=== PATIENT | male | born 1975 | race Caucasian/White ===

== ENCOUNTER 2022-07-19 13:09 | Observation (INO) | payer SELFPAY ==
[2022-07-19] VITALS (21 sets, daily range): BP systolic 111–161; BP diastolic 76–125; PULSE 60–101; RESP 16–20; TEMP 36.2–36.8; O2SAT 97–100; BMI 31.6; BMI 27.1
--- NOTE | 2022-07-19 13:33 | CRLHL7_ITS ---
For Patients: As a result of the Century Cures Act, medical imaging exams and procedure reports are released immediately into your electronic medical record. You may view this report before your referring provider. If you have questions, please contact your health care provider. HISTORY: Upper abdominal/epigastric pain. TECHNIQUE: Intravenous contrast enhanced CT of the abdomen and pelvis. 99 mL Isovue-370 intravenous contrast administered. COMPARISON: 04/02/2012. FINDINGS: Mild fatty infiltration of the liver. No liver mass. No biliary ductal dilatation. Gallbladder does not appear excessively distended. Spleen size within normal limits. Enlargement of a 1.1 cm fat attenuation right adrenal gland lesion on image #43 of series 2 which may reflect a myelolipoma or lipoma. Left adrenal gland normal. There is peripancreatic edema and fluid compatible with pancreatitis. There is no pancreatic ductal dilatation. No pseudocyst. The peripancreatic vasculature remains patent. Symmetric nephrograms. Probable cyst at the anterior aspect of the superior pole the left kidney, enlarged as compared prior CT. Urinary bladder does not appear excessively distended. - No small bowel obstruction. No appendicitis. Colonic diverticulosis without acute diverticulitis. - No fluid collection or free air. - No abdominal aortic aneurysm. - Mild atelectasis within the lung bases. - Degenerative changes of the hips. There is ankylosis across the sacroiliac joints suggesting chronic sacroiliitis changes. Degenerative changes within the spine. No lumbar ankylosis. IMPRESSION: 1. Acute pancreatitis. No pancreatic necrosis or pseudocyst. 2. Mild fatty infiltration of the liver. 3. Colonic diverticulosis without diverticulitis. 4. Ankylosis across the sacroiliac joints suggesting chronic sacroiliitis changes. Dictated by Beau Remy MD @ 07/19/2022 3:43:37 PM Please note that all CT scans at this facility use dose modulation, iterative reconstruction, and/or weight-based dosing when appropriate to reduce radiation dose to as low as reasonably achievable. Dictated by: Beau Remy MD @ 07/19/2022 15:43:45 (Electronically Signed)
--- NOTE | 2022-07-19 13:34 | ED_ITS ---
HPI - Abdominal Pain General Chief Complaint: Abdominal Pain Stated Complaint: Abdominal pain Time Seen by Provider: 07/19/22 13:13 History of Present Illness HPI narrative: This 46-year-old male comes in with upper epigastric abdominal pain that began this morning. He states that he had similar pain about a 2 weeks ago. He reports some associated nausea and a couple vomiting episodes. He does not report any fever or diarrhea. He does have diabetes but is otherwise in good health. Related Data Allergies Allergy/AdvReac Type Severity Reaction Status Date / Time No Known Drug Allergies Allergy Verified 07/19/22 13:15 Review of Systems Status of ROS Reports: 10 or more systems reviewed and unremarkable except as noted in History and below Narrative Constitutional: No fevers, no weight gain or loss. Eyes: No discharge. No vision changes. HENT: No congestion, no sore throat, no ear pain. Cardiovascular: No chest pain, no palpitations. Respiratory: No shortness of breath, no wheezes, no cough. Gastrointestinal: Upper epigastric abdominal pain. Nausea with vomiting. No diarrhea. Genitourinary: No dysuria, no hematuria. Musculoskeletal: Normal range of motion. Skin: No rashes, no pruritis. Neurological: No dizziness, weakness, sensory change, speech change. Endo/Heme/Allergies: No bruising or bleeding. No polydipsia. Pysch: no suicidality, no anxiety, no insomnia. All other systems reviewed and are negative. PFSH PFSH Social History Smoking Status: Light tobacco smoker What tobacco products do you use: cigarettes Do you use any of these nicotine containing products: Vaping Products Second hand tobacco smoke exposure: No How often do you have a drink containing alcohol: monthly or less How many standard drinks containing alcohol do you have on a typical day: 1 or 2 How often do you have six or more drinks on one occasion: Never AUDIT-C Alcohol total score: 1 Non-prescribed substance use: denies use service: No Exam Narrative: Exam Narrative: Constitutional: Well-developed, well-nourished, no acute distress. HEENT: Normocephalic, atraumatic. Neck: Normal range of motion. Nontender. Supple. Heart: Regular. No murmurs. Normal rate. Intact distal pulses. Lungs: Clear to auscultation. No chest discomfort. No wheezes, rhonchi, or rales. Abdomen: Normal bowel sounds. Tenderness in the upper abdomen. No rebound tenderness. Genitalia: Deferred. Back: No midline tenderness. Normal range of motion. Extremities: Normal range of motion. No injury. Skin: Intact. No rash. Warm. No erythema or pallor. Neurologic: No altered sensation. No weakness. Alert and oriented. Psychiatric: No suicidality. No anxiety or depression. No insomnia. Nursing notes and vitals signs are reviewed. Const: Vital Signs, click to edit/add: Vital Signs - 24 hr 07/19/22 13:16 07/19/22 14:00 07/19/22 14:02 Temperature 97.2 F L Pulse Rate 73 64 Pulse Rate [Pulse Oximeter] 65 Respiratory Rate 20 Blood Pressure 144/103 H Blood Pressure [Ri ght Upper Arm] 161/125 H Pulse Oximetry 100 98 97 Oxygen Delivery Me thod Room Air Course Vital Signs Vital signs: Initial Vital Signs Temperature 97.2 F L 07/19/22 13:16 Temperature Source Temporal Artery Scan 07/19/22 13:16 Pulse Rate 65 07/19/22 13:16 Pulse Rhythm 07/19/22 13:16 Respiratory Rate 20 07/19/22 13:16 Blood Pressure 161/125 H 07/19/22 13:16 Blood Pressure Mean 137 07/19/22 13:16 Blood Pressure Position Supine 07/19/22 13:16 Pulse Oximetry 100 07/19/22 13:16 Oxygen Delivery Method 07/19/22 13:16 Vital Signs Temperature 97.2 F L 07/19/22 13:16 Pulse Rate 65 07/19/22 13:16 Respiratory Rate 20 07/19/22 13:16 Blood Pressure 161/125 H 07/19/22 13:16 Pulse Oximetry 100 07/19/22 13:16 Oxygen Delivery Method 07/19/22 13:16 Temperature 97.2 F L 07/19/22 13:16 Pulse Rate 64 07/19/22 14:02 Respiratory Rate 20 07/19/22 13:16 Blood Pressure 144/103 H 07/19/22 14:02 Pulse Oximetry 97 07/19/22 14:02 Oxygen Delivery Method 07/19/22 13:16 MDM - Abdominal Pain MDM Narrative Medical decision making narrative: This patient comes in with abdominal pain that started earlier this morning. An IV was established where he did receive Dilaudid 0.5 mg and Zofran [address] scan of the abdomen and pelvis is obtained and does show evidence of pancreatitis without any complication. His lipase level is also elevated. Glucose also returns elevated at 390. The patient states that he does not use alcohol. His gallbladder appears normal on CT imaging and other liver enzymes are not suspicious of an obstructive pattern. I did speak with the hospitalist chief information security officer, Dr. Hermosillo, who agrees to his admission. Lab Data Labs: Lab Results 07/19/22 07/19/22 Range/Units 13:50 13:50 WBC 10.89 (4.50-11.00) K/uL RBC 5.76 (4.30-5.90) m/uL Hgb 16.8 (13.5-17.5) gm/dL Hct 47.0 (37.0-53.0) % MCV 82 (80-100) fL MCH 29 (26-34) pg MCHC 36 (32-36) gm/dL RDW Coeff of Ruben 12.0 (11.5-15.5) % Plt Count 173 (140-440) K/uL Neut % (Auto) 74.9 H (42.0-72.0) % Lymph % (Auto) 18.2 L (20-44) % [place] % (Auto) 5.9 (0.0-11.0) % Eos % (Auto) 0.6 (0.0-7.0) % Baso % (Auto) 0.2 (0.0-3.0) % Neut # (Auto) 8.20 H (1.7-7.0) K/uL Lymph # (Auto) 2.00 (0.90-2.90) K/uL [place] # (Auto) 0.60 (0.00-0.90) K/UL Eos # (Auto) 0.06 (0.00-0.50) K/uL Baso # (Auto) 0.02 (0.00-0.30) K/uL Sodium 132 L (135-149) mmol/L Potassium 4.4 (3.6-5.1) mmol/L Chloride 97 (96-114) mmol/L Carbon Dioxide 21 (20-32) mmol/L BUN 13 (5-24) mg/dL Creatinine 0.7 (0.5-1.5) mg/dL Estimated Creat Clear 139.05 Estimated GFR 117 ml/min Glucose 390 H* (60-115) mg/dL Calcium 9.2 (8.4-10.6) mg/dL Total Bilirubin 1.4 (0.1-1.5) mg/dL Direct Bilirubin 0.5 (0.0-0.5) mg/dL AST 33 (12-35) U/L ALT 43 (4-50) U/L Alkaline Phosphatase 181 H (40-150) U/L Total Protein 8.8 H (6.0-8.3) g/dL Albumin 4.6 (3.3-5.0) g/dL Lipase 2707 H (23-300) U/L Imaging Data CT scan - abdomen: Radiologist's impression: 1. Acute pancreatitis. No pancreatic necrosis or pseudocyst. 2. Mild fatty infiltration of the liver. 3. Colonic diverticulosis without diverticulitis. 4. Ankylosis across the sacroiliac joints suggesting chronic sacroiliitis changes. ECG Data Attestation: I personally reviewed and interpreted this ECG as follows: Interpretation: Normal sinus rhythm. Rate is 60 beats per minute. There are no ST or T-wave abnormalities. Discharge Plan Discharge Clinical Impression: Acute pancreatitis Patient Disposition: Admitted As Inpatient Condition: Unchanged Follow Up/Referrals: Provider,Not a Local [Primary Care Provider] - Stand Alone Forms: [employer] Info Instructions
[2022-07-19] MEDS: ONDANSETRON 2 MG/ML inj 4 MG IVP (13:52)
[2022-07-19] MEDS: HYDROmorphone 0.5 mg/0.5 ml inj IVP (13:55)
[2022-07-19 13:57] LABS: Basophils Absolute Auto 0.02 K/uL (0.00-0.30); Basophils Percent Auto 0.2 % (0.0-3.0); Eosinophils Absolute Auto 0.06 K/uL (0.00-0.50); Eosinophils Percent Auto 0.6 % (0.0-7.0); Hemoglobin* 16.8 gm/dL (13.5-17.5); Immature Granulocytes Abs Auto 0.02 K/uL (0.00-0.30); Immature Granulocytes Pct Auto 0.2 %; Lymphocytes Percent Auto 18.2 % (20-44); Mean Corpuscular HGB Conc 36 gm/dL (32-36); Mean Corpuscular Hemoglobin 29 pg (26-34); Mean Corpuscular Volume 82 fL (80-100); Monocytes Percent Auto 5.9 % (0.0-11.0); Neutrophils Percent Auto 74.9 % (42.0-72.0); Platelet Count* 173 K/uL (140-440); Red Blood Count 5.76 m/uL (4.30-5.90); White Blood Count* 10.89 K/uL (4.50-11.00)
[2022-07-19 14:05] LABS: Slide Review Reflex No
[2022-07-19 14:37] LABS: Albumin* 4.6 g/dL (3.3-5.0); Chloride* 97 mmol/L (96-114); Potassium* 4.4 mmol/L (3.6-5.1); Sodium* 132 mmol/L (135-149)
[2022-07-19 14:40] LABS: Alanine Aminotransferase* 43 U/L (4-50); Alkaline Phosphatase* 181 U/L (40-150); Aspartate Amino Transferase* 33 U/L (12-35); Bilirubin Direct* 0.5 mg/dL (0.0-0.5); Bilirubin Total* 1.4 mg/dL (0.1-1.5); Blood Urea Nitrogen* 13 mg/dL (5-24); Calcium* 9.2 mg/dL (8.4-10.6); Carbon Dioxide* 21 mmol/L (20-32); Creatinine* 0.7 mg/dL (0.5-1.5); Est. Creatinine Clearance* 139.05; Estimated Glomerular Filt Rate 117 ml/min; Total Protein* 8.8 g/dL (6.0-8.3)
[2022-07-19 14:49] LABS: Glucose* 390 mg/dL (60-115); Lipase* 2707 U/L (23-300)
[2022-07-19 16:20] LABS: SARS PCR* Negative SARS-CoV-2 (Negative)
--- NOTE | 2022-07-19 16:36 | P.IMHP_ITS ---
Hospitalist- H&P: HPI History of Present Illness Date Seen: 07/19/22 Chief complaint: Abdominal pain Narrative: ADMISSION HISTORY AND PHYSICAL - HOSPITALIST Chief Complaint: Abdominal pain HPI: Abhinav is a gentleman who presents with abdominal pain that started this morning. He states that to a much lesser extent he has had similar pains over the last 2 weeks. He said however this morning it started and it quickly accelerated and caused him significant discomfort, radiating to his left shoulder and mid back. He felt nauseated and threw up. No fever. He drinks very little alcohol. He is an uncontrolled type 2 diabetic with hypertriglyceridemia. He is seen with public assistance at [facility]. He lives in a home here in [place]. 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 He is bilingual. No drug use. I've updated the PFSH, medications and allergies in the [place] tabs. INVESTIGATIONS: LABS/MICRO/ECG/IMAGING 144/103, pulse 64, respirations 22, afebrile, satting 96% room air Weight stated as 100 kg, BMI 31.6 CBC is unremarkable. Normal white count. Not anemic. Normal platelets. Sodium is 132, glucose 390. Sodium corrects to 139. Otherwise normal electrolytes, normal renal function. Glucose 390. A1c greater than 14 Triglycerides 2347 CRP 0.5 Normal magnesium No alcohol detected UDS pending Alk phos noted to be a mildly elevated as is total protein Lipase 2700 Negative SARS-CoV-2 EKG shows right bundle-branch block. Abdominal pelvic CT 1. Acute pancreatitis. No pancreatic necrosis or pseudocyst. 2. Mild fatty infiltration of the liver. 3. Colonic diverticulosis without diverticulitis. 4. Ankylosis across the sacroiliac joints suggesting chronic sacroiliitis changes. REVIEW OF SYSTEMS: 12-point ROS completed with patient and negative unless otherwise stated in HPI or below. PHYSICAL EXAM: CODE STATUS: FULL CODE CONSTITUTIONAL: NAD, making jokes and smiling. VITAL SIGNS: see record. HEENT: Normocephalic, atraumatic. PERRL, EOMI, conjunctivae pink, no scleral icterus. Ears and nose externally normal. Pharynx normal. NECK: No JVD. No carotid bruit, no thyromegaly, no adenopathy. CHEST: Clear to auscultation bilaterally HEART: S1 and S2 normal. No harsh murmurs. Edema ABDOMEN: soft. mildly tender across the upper quadrants. MUSCULOSKELETAL: No gross joint deformity or swelling. NEURO: Cranial nerves intact. Grossly intact. No asymmetric findings. SKIN: No rashes, petechiae, concerning changes PSYCHIATRIC: Euthymic. 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 Kyrgyz as 2nd language, [place] Islander speaking. Highest level of school completed/degree received: 2nd grade Smoking Status: Light tobacco smoker What tobacco products do you use: cigarettes Do you use any of these nicotine containing products: Vaping Products Second hand tobacco smoke exposure: No How often do you have a drink containing alcohol: monthly or less How many standard drinks containing alcohol do you have on a typical day: 1 or 2 How often do you have six or more drinks on one occasion: Never AUDIT-C Alcohol total score: 1 Non-prescribed substance use: denies use Caffeine: Yes service: No Meds Home Medications and Allergies Home Medications Medication Instructions Recorded Confirmed Type amlodipine 5 mg tablet 5 mg PO DAILY 07/19/22 07/19/22 History atorvastatin 10 mg tablet 10 mg PO DAILY 07/19/22 07/19/22 History glimepiride 2 mg tablet 2 mg PO DAILY 07/19/22 07/19/22 History hydrochlorothiazide 25 mg tablet 25 mg PO DAILY 07/19/22 07/19/22 History lisinopril 10 mg tablet 10 mg PO DAILY 07/19/22 07/19/22 History metformin 500 mg tablet 1,000 mg PO QAM 07/19/22 07/19/22 History Allergies Allergy/AdvReac Type Severity Reaction Status Date / Time No Known Drug Allergies Allergy Verified 07/19/22 13:15 Exam Const: Vital Signs, click to edit/add: Vital Signs - 24 hr 07/19/22 13:16 07/19/22 14:00 07/19/22 14:02 Temperature 97.2 F L Pulse Rate 73 64 Pulse Rate [Pulse Oximeter] 65 Respiratory Rate 20 Blood Pressure 144/103 H Blood Pressure [Ri ght Upper Arm] 161/125 H Pulse Oximetry 100 98 97 Oxygen Delivery Me thod Room Air Hospitalist - H&P: Result Labs Labs: Short CBC 07/19/22 Range/Units 13:50 WBC 10.89 (4.50-11.00) K/uL Hgb 16.8 (13.5-17.5) gm/dL Hct 47.0 (37.0-53.0) % Plt Count 173 (140-440) K/uL BMP 07/19/22 13:50 Sodium 132 L Potassium 4.4 Chloride 97 Carbon Dioxide 21 BUN 13 Creatinine 0.7 Glucose 390 H* Calcium 9.2 Liver Function 07/19/22 Range/Units 13:50 Total Bilirubin 1.4 (0.1-1.5) mg/dL Direct Bilirubin 0.5 (0.0-0.5) mg/dL AST 33 (12-35) U/L ALT 43 (4-50) U/L Alkaline Phosphatase 181 H (40-150) U/L Albumin 4.6 (3.3-5.0) g/dL ECG Attestation: I personally reviewed and interpreted this ECG as follows: (NORMAL AXIS, SINUS RHYTHM, RATE IN THE 60S, RIGHT BUNDLE BRANCH BLOCK, NO ST T WAVE ISCHEMIC CHANGES. NO PREVIOUS ECG AVAILABLE) Prior ECG tracings: not available for review Imaging CT scan - abdomen: Attestation: I have reviewed the pertinent imaging results. Assessment and Plan Assessment and plan (1) Acute pancreatitis: Problem comment: Supportive care with IV analgesics, antiemetics. I suspect this is related to his hyperglycemia, hypertriglyceridemia. Sliding scale insulin with frequent Accu-Cheks. No evidence of acidosis. Abdominal ultrasound in morning. I will have the pharmacy do a deeper dive into his last set of refills, however I am not convinced he is totally compliant with his medications. I did keep him on same dose of glimepiride and I increased his metformin from a total of 1500 mg daily to 2000 mg divided b.i.d.. This is in addition to the insulin which will likely be needed at discharge given his A1c. Status: Acute (2) Uncontrolled diabetes mellitus: Problem comment: A1c greater than 14. Reports being on 2 orals, I question his compliance. Will definitely need some Education post hospitalization follow through Status: Acute (3) Hypertriglyceridemia: Problem comment: Greater than 1999, increased his atorvastatin from 10 mg to 40 mg. Again I am not sure how compliant he was with the 10 mg Status: Acute (4) Adrenal nodule: Problem comment: Noted, can be followed up as an outpatient Status: Acute (5) Renal cyst: Problem comment: Noted, can be followed up as outpatient Status: Acute (6) Elevated alkaline phosphatase measurement: Problem comment: Trend and follow. Status: Acute (7) Right bundle branch block: Problem comment: Noted Status: Acute
[2022-07-19 16:48] LABS: Cholesterol* 254 mg/dL (90-199)
[2022-07-19 16:49] LABS: HDL Cholesterol* 36 mg/dL (>=40)
[2022-07-19] MEDS: HYDROmorphone 0.5 mg/0.5 ml inj 0.2 MG IVP (16:50)
[2022-07-19 16:52] LABS: C Reactive Protein* 0.5 mg/dL (0.5-1.0)
[2022-07-19 17:06] LABS: Ethanol* < 0.01 % (0.01-0.03)
[2022-07-19 17:07] LABS: Triglycerides* 2347 mg/dL (40-149)
[2022-07-19 17:23] LABS: Hemoglobin A1C* > 14.00 % (0-5.6)
--- NOTE | 2022-07-19 17:36 | CRLHL7_ITS ---
For Patients: As a result of the Cures Act, medical imaging exams and procedure reports are released immediately into your electronic medical record. You may view this report before your referring provider. If you have questions, please contact your health care provider. INDICATION: PANCREATITIS. COMPARED TO EARLIER CT. TECHNIQUE: Ultrasound abdomen limited. Sonographic images of the right upper quadrant were obtained using corral-scale and color Doppler images. COMPARISON: CT STUDY EARLIER TODAY ON 07/19/2022. FINDINGS: Liver: Heterogeneous, echogenic liver parenchyma, likely due to fatty infiltration. No masses. No intrahepatic biliary dilatation. Liver size upper range of normal, measuring 17.6 cm. Gallbladder: No stones or sludge. Normal wall thickness. No pericholecystic fluid. Common bile duct: 5 mm. Pancreas: Unremarkable. No peripancreatic fluid identified on this ultrasound. Right kidney: Length 10.9 cm. Normal echotexture and cortex. No masses, stones, or hydronephrosis. Vasculature: Pro abdominal aorta, IVC, and portal vein not evaluated. IMPRESSION: 1. No cholelithiasis or biliary dilatation with clinical history of pancreatitis. No peripancreatic fluid or pancreatic head mass identified. Please see earlier CT report. 2. Hepatic steatosis. Dictated by Misael Roberto MD @ 07/19/2022 7:35:18 PM Dictated by: Misael Roberto MD @ 07/19/2022 19:35:28 (Electronically Signed)
[2022-07-19 18:01] LABS: Magnesium* 1.7 mg/dL (1.5-2.6)
[2022-07-19] MEDS: 0.9 % SODIUM CHLORIDE 1000 ml 1,000 ML 125 ML IV (19:20)
[2022-07-19] MEDS: PANTOPRAZOLE SODIUM 40 MG INJ IVP (19:37)
[2022-07-19] MEDS: ATORVASTATIN 10 MG TABLET 40 MG PO (20:44)
[2022-07-19] MEDS: ENOXAPARIN 40 MG/0.4 ML INJ SUBCUT (20:45)
[2022-07-19] MEDS: KETOROLAC 30 MG/ML inj IVP (22:41)
--- NOTE | 2022-07-19 23:39 | PC.NURSE ---
Pt. up to floor at 1735 w/complaints of upper left abd pain. PRN Toradol administered w/relief. VSS. Pt. denies N/V/SOB. IV in left AC patent. NS running at 125 hr. Blood sugar 361, Levemir and Novolog sliding scale administered. Pt. on diabetic clear liquid diet. Pt. will be NPO at midnight for abdominal ultra sound in the AM. Pt. is ukrainian speaking but understands and speaks Yakut. Has requested a traffic superintendent for tomorrow when he speaks with the MD when discussing his condition in detail. Ambulates indep. in Room. and to BR. Bilateral SCD's on.
[2022-07-20] MEDS: 0.9 % SODIUM CHLORIDE 1000 ml 1,000 ML 125 ML IV ×3 (02:57→18:59)
[2022-07-20 03:00] VITALS: BP 96/68; PULSE 88; RESP 16; TEMP 36.4; O2SAT 94
--- NOTE | 2022-07-20 05:26 | PC.NURSE ---
Shift note: Pt is doing well. No abd. pain, N/V were reported. V/S stable. NPO status maintained for possible ultrasound today. Pt is independent in room.
[2022-07-20] MEDS: OMEPRAZOLE 20 MG CAPSULE DR 40 MG PO (06:27)
[2022-07-20 07:03] LABS: HCO3 VBG 29 mmol/L (21-28); PCO2 VBG 46 mmHG (40-50); PO2 VBG 25.7 mmHG (25-47); pH VBG 7.405 (7.32-7.43)
[2022-07-20 07:06] LABS: Hematocrit 43.2 % (37.0-53.0); Hemoglobin* 14.9 gm/dL (13.5-17.5); Mean Corpuscular HGB Conc 35 gm/dL (32-36); Mean Corpuscular Hemoglobin 29 pg (26-34); Mean Corpuscular Volume 83 fL (80-100); Platelet Count* 171 K/uL (140-440); Red Blood Count 5.23 m/uL (4.30-5.90); White Blood Count* 9.18 K/uL (4.50-11.00)
[2022-07-20 07:16] LABS: Slide Review Reflex No
[2022-07-20 07:31] LABS: Albumin* 3.6 g/dL (3.3-5.0); Chloride* 106 mmol/L (96-114)
[2022-07-20 07:32] LABS: Potassium* 4.3 mmol/L (3.6-5.1); Sodium* 137 mmol/L (135-149)
[2022-07-20 07:33] LABS: Creatinine* 0.8 mg/dL (0.5-1.5); Estimated Glomerular Filt Rate 112 ml/min
[2022-07-20 07:34] LABS: Alanine Aminotransferase* 31 U/L (4-50); Alkaline Phosphatase* 96 U/L (40-150); Aspartate Amino Transferase* 24 U/L (12-35); Blood Urea Nitrogen* 17 mg/dL (5-24); Carbon Dioxide* 27 mmol/L (20-32); Gamma Glutamyl Transpeptidase* 43 U/L (8-55); Glucose* 241 mg/dL (60-115); Lipase* 482 U/L (23-300); Total Protein* 6.9 g/dL (6.0-8.3); Uric Acid* 5.2 mg/dL (2.2-8.4)
[2022-07-20 07:35] LABS: Calcium* 8.7 mg/dL (8.4-10.6)
[2022-07-20 07:37] LABS: C Reactive Protein* 2.5 mg/dL (0.5-1.0)
[2022-07-20 07:46] LABS: Triglycerides* 741 mg/dL (40-149)
[2022-07-20 08:23] VITALS: BP 104/69; PULSE 92; RESP 18; TEMP 36.7; O2SAT 94
[2022-07-20] MEDS: METFORMIN 500 MG TABLET 1000 MG PO ×2 (09:20→17:35)
[2022-07-20] MEDS: lisinopriL 10 MG TABLET PO (09:21)
[2022-07-20] MEDS: AMLODIPINE 5 MG TABLET PO (09:21)
[2022-07-20] MEDS: GLIMEPIRIDE 1 MG TABLET 2 MG PO (09:21)
[2022-07-20 11:36] VITALS: BP 95/57; PULSE 86; RESP 18; TEMP 36.8; O2SAT 96
--- NOTE | 2022-07-20 14:02 | PC.NURSE ---
Pt. ambulating independently. Tolerating clear liquid diabetic diet. No nausea/vomiting. Blood sugars 240 and 190. Bowel sounds active. Passing flatus. No BM. Denies pain.
[2022-07-20 15:00] VITALS: BP 114/90; PULSE 82; RESP 18; TEMP 36.9; O2SAT 96
--- NOTE | 2022-07-20 16:55 | P.IMPN_ITS ---
Progress Note: A&P Assessment and plan (1) Acute pancreatitis: Problem details: Supportive care with IV analgesics, antiemetics. I suspect this is related to his hyperglycemia, hypertriglyceridemia. Sliding scale insulin with frequent Accu-Cheks. No evidence of acidosis. Abdominal ultrasound is negative for gallstones or cholecystitis. I will have the pharmacy do a deeper dive into his last set of refills, however I am not convinced he is totally compliant with his medications. I did keep him on same dose of glimepiride and I increased his metformin from a total of 1500 mg daily to 2000 mg divided b.i.d.. This is in addition to the insulin which will likely be needed at discharge given his A1c. Status: Acute Assessment and Plan: Advance diet as tolerated. (2) Uncontrolled diabetes mellitus: Problem details: A1c greater than 14. Reports being on 2 orals, I question his compliance. Will definitely need some Education post hospitalization follow through Status: Acute Assessment and Plan: Dietitian consultation for tomorrow. Increased dose of detemir insulin. (3) Hypertriglyceridemia: Problem details: Greater than 1999, increased his atorvastatin from 10 mg to 40 mg. Again I am not sure how compliant he was with the 10 mg Status: Acute (4) Adrenal nodule: Problem details: Noted, can be followed up as an outpatient Status: Acute (5) Renal cyst: Problem details: Noted, can be followed up as outpatient Status: Acute (6) Elevated alkaline phosphatase measurement: Problem details: Trend and follow. Status: Acute (7) Right bundle branch block: Problem details: Noted Status: Acute Plan Patient agreeable with above stated plans and recommendations. Time Spent With Patient Total time spent: 40 minutes Subjective Time Seen by Provider: 11:00 Date Seen: 07/20/22 Interval history: Hospital day 2. Abhinav is a 46-year-old gentleman who presents with abdominal pain that started on the morning of his presentation to the hospital.? He states that to a much lesser extent he has had similar pains over the last 2 weeks.? He said however this morning it started and it quickly accelerated and caused him significant discomfort, radiating to his left shoulder and mid back.? He felt nauseated and threw up.? No fever.? He drinks very little alcohol.? He is an uncontrolled type 2 diabetic with hypertriglyceridemia.? He is seen with public assistance at [facility].? He lives in a home here in [place].? 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 He is bilingual.? No drug use. He indicates he feels almost 90% improved. Abdominal discomfort and back discomfort much improved. Tolerating increased activities. Tolerating clear liquids. Denies nausea or vomiting. Exam Narrative: Exam Narrative: I speak with patient in Italian and also through a transportation maintenance operator. Appears comfortable and in no acute distress. Alert and oriented to self, place, time, situation. Friendly, articulate, cooperative. Mood and affect are congruent. Lungs are clear to auscultation. No CVA tenderness. Heart tones with regular rhythm. Abdomen with active bowel sounds, soft, nontender. Extremities without edema. Skin is warm, dry, intact. Independent transfer, station, and gait. No focal motor neurologic deficits. Const: Vital Signs, click to edit/add: Vital Signs - 24 hr 07/19/22 17:00 07/19/22 17:01 07/19/22 17:47 Temperature Pulse Rate 90 89 Pulse Rate [Left P ulse Oximeter] Respiratory Rate 20 Blood Pressure 146/103 H Blood Pressure [Ri ght Arm] Pulse Oximetry 98 99 99 Oxygen Delivery Me thod Room Air 07/19/22 17:58 07/19/22 18:16 07/19/22 19:00 Temperature 97.6 F 97.6 F 97.8 F Pulse Rate 90 Pulse Rate [Left P ulse Oximeter] 90 94 Respiratory Rate 16 16 16 Blood Pressure 121/96 H Blood Pressure [Ri ght Arm] 121/96 H 134/94 H Pulse Oximetry 97 97 97 Oxygen Delivery Me thod Room Air Room Air Room Air 07/19/22 23:00 07/20/22 03:00 07/20/22 08:23 Temperature 98.3 F 97.6 F 98.1 F Pulse Rate Pulse Rate [Left P ulse Oximeter] 101 H 88 92 Respiratory Rate 16 16 18 Blood Pressure Blood Pressure [Ri ght Arm] 111/76 96/68 104/69 Pulse Oximetry 97 94 94 Oxygen Delivery Me thod Room Air Room Air Room Air 07/20/22 11:36 07/20/22 15:00 Temperature 98.2 F 98.4 F Pulse Rate Pulse Rate [Left P ulse Oximeter] 86 82 Respiratory Rate 18 18 Blood Pressure Blood Pressure [Ri ght Arm] 95/57 L 114/90 H Pulse Oximetry 96 96 Oxygen Delivery Me thod Room Air Room Air Labs Labs: Laboratory Results - last 24 hr 07/19/22 07/19/22 07/19/22 13:50 13:50 13:50 WBC RBC Hgb Hct MCV MCH MCHC Plt Count VBG pH VBG pCO2 VBG pO2 VBG HCO3 Sodium Potassium Chloride Carbon Dioxide BUN Creatinine Estimated Creat Clear Estimated GFR Glucose Hemoglobin A1c > 14.00 H Uric Acid Calcium Magnesium 1.7 Total Bilirubin GGT AST ALT Alkaline Phosphatase C-Reactive Protein 0.5 Total Protein Albumin Triglycerides 2347 H Cholesterol 254 H LDL Cholesterol, Calc -251 HDL Cholesterol 36 L Lipase Ethyl Alcohol < 0.01 L 07/20/22 07/20/22 07/20/22 06:55 06:55 06:55 WBC 9.18 RBC 5.23 Hgb 14.9 Hct 43.2 MCV 83 MCH 29 MCHC 35 Plt Count 171 VBG pH 7.405 VBG pCO2 46 VBG pO2 25.7 VBG HCO3 29 H Sodium 137 Potassium 4.3 Chloride 106 Carbon Dioxide 27 BUN 17 Creatinine 0.8 Estimated Creat Clear 125.50 Estimated GFR 112 Glucose 241 H Hemoglobin A1c Uric Acid 5.2 Calcium 8.7 Magnesium Total Bilirubin 1.0 GGT 43 AST 24 ALT 31 Alkaline Phosphatase 96 C-Reactive Protein 2.5 H Total Protein 6.9 Albumin 3.6 Triglycerides 741 H Cholesterol LDL Cholesterol, Calc HDL Cholesterol Lipase 482 H Ethyl Alcohol
[2022-07-20 19:00] VITALS: BP 115/82; PULSE 93; RESP 18; TEMP 36.8; O2SAT 95
[2022-07-20] MEDS: ENOXAPARIN 40 MG/0.4 ML INJ SUBCUT (20:49)
[2022-07-20] MEDS: ATORVASTATIN 10 MG TABLET 40 MG PO (20:49)
[2022-07-20 23:00] VITALS: BP 117/79; PULSE 93; RESP 18; TEMP 36.7; O2SAT 93
[2022-07-21] MEDS: 0.9 % SODIUM CHLORIDE 1000 ml 1,000 ML 125 ML IV (02:20)
[2022-07-21 03:00] VITALS: BP 114/79; PULSE 93; RESP 18; TEMP 36.5; O2SAT 96
--- NOTE | 2022-07-21 05:47 | PC.NURSE ---
[id number] Pt tolerating soft foods, denies N/V, no pain. pt slept well during night. independent in room.
[2022-07-21] MEDS: OMEPRAZOLE 20 MG CAPSULE DR 40 MG PO (06:13)
[2022-07-21 06:39] LABS: Lipase* 178 U/L (23-300)
[2022-07-21 06:42] LABS: C Reactive Protein* 4.4 mg/dL (0.5-1.0)
[2022-07-21 07:00] VITALS: BP 120/97; PULSE 86; RESP 20; TEMP 36.7; O2SAT 97
[2022-07-21] MEDS: GLIMEPIRIDE 1 MG TABLET 2 MG PO (08:21)
[2022-07-21] MEDS: METFORMIN 500 MG TABLET 1000 MG PO (08:22)
--- NOTE | 2022-07-21 10:27 | NUTR.NU ---
RDN with MD consult related to diabetic teaching. Patient admitted for acute pancreatitis and uncontrolled diabetes. A1C on admit was found to be greater than 14%. RDN visited with patient whom agreed to diet education. His was on the phone during visit whom is only Japanese speaking, patient interpreted for his . Diabetic diet education provided. Discussed basics of carbohydrate counting including sources of carbohydrates and serving sizes. Discussed using the plate method for carbohydrate-controlled, balanced meals that include ? plate non-starchy vegetables, ? plate protein, and 3-4 servings of carbohydrates per meal (fruit, whole grains, legumes, milk, yogurt) and 1-2 per snack. Handouts provided to support discussion. RDN contact information provided and encouraged patient to call with questions. RDN encouraged patient to visit RDN as an outpatient in a clinic setting. RDN to follow up as needed.
[2022-07-21 12:09] VITALS: BP 121/96; PULSE 90; RESP 20; TEMP 36.7
--- NOTE | 2022-07-21 13:06 | PC.NURSE ---
End of Shift Note: Patient will be discharging to home later this afternoon. Waiting for the in-person cytology teacher to be available as I want to make sure that he understands his discharge instructions. Did also tell patient this and he is in agreeement with waiting. Will continue to monitor until discharge.
--- NOTE | 2022-07-21 14:54 | P.DS_ITS ---
DS: Providers Provider Time Seen by Provider: 11:00 Date Seen: 07/21/22 Date of admission: 07/19/22 17:26 Primary care physician: Not a Local Provider Admitting Clinician: Karin Hermosillo MD Consults: 07/19/22 17:36 Consult to Nutrition [CONS] Routine Comment: Reason for consult:: Diabetic Teaching 07/20/22 14:43 Consult to Nutrition [CONS] Routine Comment: Reason for consult:: Miscellaneous Comment: DMT2 poor control; hypertriglyceridemia; acute pancreatitis Attending Physician on discharge: Karin Hermosillo MD Date of Discharge: 07/21/22 DS: Diagnosis Discharge Diagnosis (1) Acute pancreatitis: Status: Acute Problem details: Supportive care with IV analgesics, antiemetics. I suspect this is related to his hyperglycemia, hypertriglyceridemia. Sliding scale insulin with frequent Accu-Cheks. No evidence of acidosis. Abdominal ultrasound is negative for gallstones or cholecystitis. I will have the pharmacy do a deeper dive into his last set of refills, however I am not convinced he is totally compliant with his medications. I did keep him on same dose of glimepiride and I increased his metformin from a total of 1500 mg daily to 2000 mg divided b.i.d.. This is in addition to the insulin which will likely be needed at discharge given his A1c. (2) Hypertriglyceridemia: Status: Acute Problem details: Greater than 1999, increased his atorvastatin from 10 mg to 40 mg. Again I am not sure how compliant he was with the 10 mg (3) Uncontrolled diabetes mellitus: Status: Acute Problem details: A1c greater than 14. Reports being on 2 orals, I question his compliance. Will definitely need some Education post hospitalization follow through (4) Elevated alkaline phosphatase measurement: Status: Acute Problem details: Trend and follow. (5) Hepatic steatosis: Status: Acute (6) Right bundle branch block: Status: Acute Problem details: Noted (7) Renal cyst: Status: Acute Problem details: Noted, can be followed up as outpatient (8) Adrenal nodule: Status: Acute Problem details: Recommend follow-up in outpatient setting DS: Summary Hospital Course Hospital Course: 46 year old man presents with abdominal pain that started on the morning of his presentation for evaluation.? He states that to a much lesser extent he has had similar pains over the prior 2 weeks.? Ont the morning of presentation, the pain quickly accelerated and caused him significant discomfort, radiating to his left shoulder and mid back.? He felt nauseated and threw up.? No fever.? He drinks very little alcohol.? He is an uncontrolled type 2 diabetic with h ypertriglyceridemia.? He is seen with public assistance at [facility].? He lives in a home here in [place].? 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 He is bilingual.? No drug use. CT scan demonstrated acute pancreatitis. Noted to have hepatic steatosis. No gallbladder or gallstone concerns. Ultrasound similarly demonstrated the hepatic steatosis with normal gallbladder and no gallstones. Triglyceride level on presentation was elevated at 2347. Patient admitted for acute hospital stay. Treated with IV and p.o. analgesics and antiemetics. Treated with IV fluids. Diet gradually increased to low residue low-fat, which he tolerated. Was able to meet his metabolic needs and hydration needs. Hemoglobin A1c was greater than 14. Met with dietitian. Underwent education regarding diabetes care and use of insulin and administration of the same. We instituted short-acting insulin use with meals, aspart insulin. We also instituted long-acting insulin, detemir insulin. Blood sugars gradually normalized from near 500 on presentation down to the mid 100s at time of discharge. Explained to the patient that he will need ongoing follow-up with his primary care physician in an effort to continue to address his diabetes care. Status at Discharge Functional status at discharge: independent ambulation Overall status at discharge: patient is back to baseline Time Spent with Patient Time attestation: Total time spent providing and/or coordinating discharge services: Time spent: Greater than 30 minutes Exam Narrative: Exam Narrative: I speak with patient in Upper Sorbian and also through a seismic interpreter. Appears comfortable and in no acute distress.? Alert and oriented to self, place, time, situation.? Friendly, articulate, cooperative.? Mood and affect are congruent.? Lungs are clear to auscultation.? No CVA tenderness. Heart tones with regular rhythm.? Abdomen with active bowel sounds, soft, nontender. Extremities without edema. Skin is warm, dry, intact. Independent transfer, station, and gait.? No focal motor neurologic deficits. Const: Vital Signs, click to edit/add: Vital Signs - 24 hr 07/20/22 15:00 07/20/22 19:00 07/20/22 23:00 Temperature 98.4 F 98.2 F 98.0 F Pulse Rate Pulse Rate [Left P ulse Oximeter] 82 93 93 Respiratory Rate 18 18 18 Blood Pressure Blood Pressure [Le ft Arm] 115/82 117/79 Blood Pressure [Ri ght Arm] 114/90 H Pulse Oximetry 96 95 93 Oxygen Delivery Me thod Room Air Room Air Room Air 07/21/22 03:00 07/21/22 07:00 07/21/22 07:00 Temperature 97.7 F 98.1 F Pulse Rate Pulse Rate [Left P ulse Oximeter] 93 86 86 Respiratory Rate 18 20 20 Blood Pressure Blood Pressure [Le ft Arm] 114/79 120/97 H Blood Pressure [Ri ght Arm] 120/97 H Pulse Oximetry 96 97 Oxygen Delivery Me thod Room Air Room Air 07/21/22 12:09 Temperature 98.1 F Pulse Rate 90 Pulse Rate [Left P ulse Oximeter] Respiratory Rate 20 Blood Pressure 121/96 H Blood Pressure [Le ft Arm] Blood Pressure [Ri ght Arm] Pulse Oximetry Oxygen Delivery Me thod Documenting provider has reviewed patient's vital signs: yes DS: Data Data Completed and Pending Labs on day of discharge: Labs from last 24 hours 07/21/22 06:09 C-Reactive Protein 4.4 H Lipase [address] scan - abdomen: Attestation: I have reviewed the pertinent imaging results. Radiologist's impression: IMPRESSION: 1. Acute pancreatitis. No pancreatic necrosis or pseudocyst. 2. Mild fatty infiltration of the liver. 3. Colonic diverticulosis without diverticulitis. 4. Ankylosis across the sacroiliac joints suggesting chronic sacroiliitis changes. US - abdomen: Radiologist's impression: IMPRESSION: 1. No cholelithiasis or biliary dilatation with clinical history of pancreatitis. No peripancreatic fluid or pancreatic head mass identified. Please see earlier CT report. 2. Hepatic steatosis. Discharge Plan Discharge Disposition: Home, Self-Care Date of Admission: 07/19/22 17:26 Attending Provider on Discharge: Andrew Segal Primary Care Provider: Provider,Not a Local Condition: Improved Anticipated Discharge Date/Time: 07/21/22 13:00 Discharge Medications: New metformin 500 mg Tablet 1,000 mg PO BIDWM 30 Days Qty: 60 2RF insulin aspart U-100 [Novolog Flexpen U-100 Insulin] 100 unit/mL (3 mL) Insulin Pen 10 unit subcut TIDWM 30 Days Qty: 3 0RF Levemir FlexTouch U-100 Insuln 100 unit/mL (3 mL) insulin pen 40 unit subcut QHS Qty: 15 2RF atorvastatin 40 mg tablet 40 mg PO DAILY Qty: 30 2RF Continued amlodipine 5 mg tablet 5 mg PO DAILY Label Comments: TAKE ONE TABLET BY MOUTH EVERY DAY. lisinopril 10 mg tablet 10 mg PO DAILY Label Comments: TAKE ONE TABLET BY MOUTH ONCE DAILY hydrochlorothiazide 25 mg tablet 25 mg PO DAILY Label Comments: TAKE ONE TABLET BY MOUTH EVERY MORNING TO CONTROL HYPERTENSION glimepiride 2 mg tablet 2 mg PO DAILY Label Comments: TAKE ONE TABLET BY MOUTH TWICE A DAY Discontinued atorvastatin 10 mg tablet 10 mg PO DAILY Label Comments: TAKE ONE TABLET BY MOUTH EVERY DAY. metformin 500 mg tablet 1,000 mg PO QAM Label Comments: TAKE TWO TABLETS BY MOUTH IN THE MORNING AND ONE TABLET IN THE EVENING Discharge Orders: Discharge Order (Routine); Ordered 07/21/22 Ordered By: Andrew Segal Patient Education: Metformin (By mouth), Atorvastatin (By mouth), Insulin Aspart Protamine/Insulin Aspart (By injection), Insulin Detemir (By injection) (Levemir, Levemir FlexPen, Levemir... Additional Instructions: 1. Follow-up with primary care physician in 1-2 weeks; 2. Balanced life efforts: diabetic diet, medication adherence, follow-up with physician, adequate sleep, sufficient daily exercise, psychosociospiritual and financial wellbeing, avoid use and consumption of tobacco, alcohol and street drugs; 3. Strive to gradually achieve and maintain weight of 85 kg. Activity Level: No Restrictions Discharge Diet: Diabetic Follow Up Appointments: Provider,Not a Local [Primary Care Provider] - (Follow up as needed) Forms: [employer] Info Instructions
--- NOTE | 2022-07-21 16:41 | W.PM.CROSSCO ---
Subjective Subjective Interval history: Called by [facility] after patient discharged, they did not have coverage for patient's long-acting and short-acting insulin through [facility]. The did have access to Novolin 70/30. Based on patient's A1c and current insulin dosages, his discharge prescription was changed from long-acting and mealtime insulin to 70/30, 20 units in the morning and 15 units before supper.
== END 2022-07-21 14:38 | disposition home or self-care (01) ==
LOC: ED 16:17 → MEDSURG 17:26
PROVIDERS: Internal Medicine; Admitting Provider Family Medicine; Emergency Provider Emergency Medicine Emergency Medical Services; Visit Provider Family Medicine
DX: K85.90 Acute pancreatitis without necrosis or infection, unspecified (principal); K76.0 Fatty (change of) liver, not elsewhere classified; E27.8 Other specified disorders of adrenal gland; N28.1 Cyst of kidney, acquired; R74.8 Abnormal levels of other serum enzymes; E78.1 Pure hyperglyceridemia; I45.10 Unspecified right bundle-branch block; E11.65 Type 2 diabetes mellitus with hyperglycemia; I10 Essential (primary) hypertension; R10.13 Epigastric pain; R11.2 Nausea with vomiting, unspecified; Z72.0 Tobacco use; Z87.19 Personal history of other diseases of the digestive system; Z79.84 Long term (current) use of oral hypoglycemic drugs; Z91.14 Patient's other noncompliance with medication regimen
CPT/HCPCS: 36415; 74177; 76705; 80048; 80053; 80061; 80076; 80306; 82077; 82803; 82962; 82977; 83036; 83690; 83735; 84478; 84550; 85025; 85027; 86140; 87635; 96361; 96372; 96374; 96375; 96376; 99285; A9270; C9113; G0378; J1170; J1650; J1885; J2405; J7030; Q9967

== ENCOUNTER 2023-09-29 09:39 | Emergency (ER) | payer OTHER, SELFPAY ==
[2023-09-29] VITALS (17 sets, daily range): BP systolic 130–151; BP diastolic 94; PULSE 87–106; RESP 20; TEMP 37.5; O2SAT 93–98
[2023-09-29] MEDS: MORPHINE 4 MG/ML INJ IVP (10:39)
[2023-09-29] MEDS: ONDANSETRON 2 MG/ML inj 4 MG IVP (10:41)
--- NOTE | 2023-09-29 10:42 | ED.GENADULT ---
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 States he has not had pain like this before in his back back pain and denies any injuries. Has taken some Tylenol ibuprofen for home with minimal improvement in his symptoms. States the pain wraps around to his epigastric region and states this epigastric pain feels similar to his previous pancreatitis. Has had decreased appetite secondary to the pain with associated nausea. Has not had any vomiting. Denies any fevers or chills. Describes it as a sharp pain in his epigastric region and a dull pain in his back. Says the back pain starts in his neck and seems call or down his back and in his low back he said it radiates to paraspinal region. Denies fevers, chills, diarrhea, constipation, lightheadedness, dizziness, headache, vision changes. Related Data Home Medications Medication Instructions Recorded Confirmed amlodipine 5 mg tablet 5 mg PO DAILY 07/19/22 07/19/22 glimepiride 2 mg tablet 2 mg PO DAILY 07/19/22 07/19/22 hydrochlorothiazide 25 mg tablet 25 mg PO DAILY 07/19/22 07/19/22 lisinopril 10 mg tablet 10 mg PO DAILY 07/19/22 07/19/22 Previous Rx's Medication Instructions Recorded atorvastatin 40 mg tablet 40 mg PO DAILY #30 tabs 07/21/22 insulin NPH-regular 70-30 U-100 15 unit (0.15 mL) subcut BID #15 mL 07/21/22 insulin 100 unit/mL subcutaneous pen (Novolin 70-30 FlexPen U-100 Insulin) metformin 500 mg tablet 1,000 mg (2 x 500 mg) PO BIDWM 30 07/21/22 days #60 tabs ondansetron 4 mg disintegrating 4 mg PO Q6H #20 tabs 09/29/23 tablet oxycodone 5 mg tablet 5 mg PO Q6H PRN pain #12 tabs 09/29/23 Allergies Allergy/AdvReac Type Severity Reaction Status Date / Time No Known Drug Allergies Allergy Verified 09/29/23 12:33 Review of Systems Status of ROS: Reports: 10 or more systems reviewed and unremarkable except as noted in History and below [facility] Medical History (Updated 09/29/23 @ 15:12 by Noah Quintana DO) Sacroiliitis ?M46.1 - Sacroiliitis, not elsewhere classified (ICD-10) Diverticulosis ?K57.90 - Diverticulosis of intestine, part unspecified, without perforation or abscess without bleeding (ICD-10) History of diverticulitis ?Z87.19 - Personal history of other diseases of the digestive system (ICD-10) Right bundle branch block ?I45.10 - Unspecified right bundle-branch block (ICD-10) Renal cyst ?N28.1 - Cyst of kidney, acquired (ICD-10) Hypertriglyceridemia ?E78.1 - Pure hyperglyceridemia (ICD-10) Uncontrolled diabetes mellitus Social History (Updated 07/19/22 @ 16:36 by Karin Hermosillo MD) Narrative: , 4 kids, works for a [employer]. Ukrainian as 2nd language, [place] speaking. Highest level of school completed/degree received: 2nd grade Smoking Status: Light tobacco smoker What tobacco products do you use: cigarettes Do you use any of these nicotine containing products: Vaping Products Second hand tobacco smoke exposure: No How often do you have a drink containing alcohol: monthly or less How many standard drinks containing alcohol do you have on a typical day: 1 or 2 How often do you have six or more drinks on one occasion: Never AUDIT-C Alcohol total score: 1 Non-prescribed substance use: denies use Caffeine: Yes service: No Exam Narrative: Exam Narrative: Const: Well-nourished, Well-developed, in mild distress Eyes: PERRL, no conjunctival injection, and symmetrical lids HENT: Atraumatic external nose and ears. Moist mucous membranes. Neck: Symmetric, trachea midline, No thyromegaly. CVS: RRR, No murmurs or gallops. Peripheral pulses 2+ and equal in all extremities RESP: Unlabored respiratory effort. Clear to auscultation bilaterally. GI: Epigastric tenderness Nondistended, No rebound or guarding. MSK:Extremities w/o deformity, Normal Active ROM, tenderness noted throughout back both midline and paraspinal Skin: Warm, Dry. No rashes or lesions. Neuro: Normal Muscle tone, No focal neurological deficits. Psych: Awake, Alert, & Oriented x3. Appropriate mood and affect. Const: Vital Signs, click to edit/add: Vital Signs - 24 hr 09/29/23 09:56 09/29/23 11:02 09/29/23 11:12 Temperature 99.5 F Pulse Rate 101 H Pulse Rate [Pulse Oximeter] 103 H 93 Respiratory Rate 20 Blood Pressure Blood Pressure [Ri ght Upper Arm] 151/94 H Pulse Oximetry 95 96 Oxygen Delivery Me thod Room Air 09/29/23 11:15 09/29/23 11:30 09/29/23 11:45 Temperature Pulse Rate 96 94 97 Pulse Rate [Pulse Oximeter] Respiratory Rate Blood Pressure Blood Pressure [Ri ght Upper Arm] Pulse Oximetry 93 93 97 Oxygen Delivery Me thod 09/29/23 12:00 09/29/23 12:42 09/29/23 12:45 Temperature Pulse Rate 97 106 H 104 H Pulse Rate [Pulse Oximeter] Respiratory Rate Blood Pressure Blood Pressure [Ri ght Upper Arm] Pulse Oximetry 98 95 95 Oxygen Delivery Me thod 09/29/23 12:49 09/29/23 13:00 09/29/23 13:15 Temperature Pulse Rate 103 H 95 100 Pulse Rate [Pulse Oximeter] Respiratory Rate Blood Pressure 130/94 H Blood Pressure [Ri ght Upper Arm] Pulse Oximetry 95 94 97 Oxygen Delivery Me thod 09/29/23 13:30 09/29/23 13:45 09/29/23 14:00 Temperature Pulse Rate 93 97 87 Pulse Rate [Pulse Oximeter] Respiratory Rate Blood Pressure Blood Pressure [Ri ght Upper Arm] Pulse Oximetry 95 96 95 Oxygen Delivery Me thod 09/29/23 14:15 09/29/23 14:30 Temperature Pulse Rate 93 103 H Pulse Rate [Pulse Oximeter] Respiratory Rate Blood Pressure Blood Pressure [Ri ght Upper Arm] Pulse Oximetry 96 93 Oxygen Delivery Me thod Course Vital Signs Vital signs: Initial Vital Signs Temperature 99.5 F 09/29/23 09:56 Temperature Source Temporal Artery Scan 09/29/23 09:56 Pulse Rate 103 H 09/29/23 09:56 Pulse Rhythm Regular 09/29/23 09:56 Respiratory Rate 20 09/29/23 09:56 Blood Pressure 151/94 H 09/29/23 09:56 Blood Pressure Mean 113 H 09/29/23 09:56 Blood Pressure Position Sitting 09/29/23 09:56 Pulse Oximetry 95 09/29/23 09:56 Oxygen Delivery Method Room Air 09/29/23 09:56 Vital Signs Temperature 99.5 F 09/29/23 09:56 Pulse Rate 103 H 09/29/23 09:56 Respiratory Rate 20 09/29/23 09:56 Blood Pressure 151/94 H 09/29/23 09:56 Pulse Oximetry 95 09/29/23 09:56 Oxygen Delivery Method Room Air 09/29/23 09:56 Temperature 99.5 F 09/29/23 09:56 Pulse Rate 103 H 09/29/23 14:30 Respiratory Rate 20 09/29/23 09:56 Blood Pressure 130/94 H 09/29/23 12:49 Pulse Oximetry 93 09/29/23 14:30 Oxygen Delivery Method Room Air 09/29/23 09:56 Medications Administered Medications: Discontinued Medications Generic Name Dose Route Start Last Admin Trade Name Freq PRN Reason Stop Dose Admin Lactated Ringer's 1,000 mls @ 1,000 mls/hr 09/29/23 12:37 09/29/23 13:57 Lactated Ringers 1000 Ml IV 09/29/23 13:36 Infused .Q1H ONE Infusion Ketorolac Tromethamine 15 mg 09/29/23 11:55 09/29/23 12:12 Ketorolac 15 Mg/Ml Inj IVP 09/29/23 11:56 15 mg ONCE ONE Administration Lidocaine HCl 7.5 ml 09/29/23 11:55 09/29/23 12:12 Lidocaine Hcl 4 % Top Soln 50 Ml Bottle PO 09/29/23 11:56 7.5 ml ONCE ONE Administration Lidocaine/Aluminum/Magnesium/Simeth 15 ml 09/29/23 11:55 09/29/23 12:12 Mag Hydrox/Aluminum Hyd/Simeth 30 Ml Oral.Susp PO 09/29/23 11:56 15 ml ONCE ONE Administration Morphine Sulfate 4 mg 09/29/23 10:24 09/29/23 10:39 Morphine 4 Mg/Ml Inj IVP 09/29/23 10:25 4 mg ONCE ONE Administration Ondansetron HCl 4 mg 09/29/23 10:27 09/29/23 10:41 Ondansetron 2 Mg/Ml Inj IVP 09/29/23 10:28 4 mg ONCE ONE Administration Medical Decision Making MDM Narrative Medical decision making narrative: Patient is a 48-year-old male presenting to emergency department for epigastric and back pain. He states the symptoms feel similar to his previous pancreatitis. He has been limited in what he can eat and drink over the past day because of the symptoms. At this time pancreatitis on my differential. Cause of a viral syndrome, muscle strain. Or CBC, CMP, lipase, urinalysis, CBC, coags/flu/RSV test. Morphine and Toradol given for pain and Zofran for nausea. Wound x-ray of his thoracic spine CT scan his abdomen and pelvis. The patient continued to have epigastric pain after the pain medications and a GI cocktail was given. After that his epigastric pain fully resolved he states. Is still having back pain but seems better is only really there when he moves. X-ray of the thoracic spine reviewed by myself and the radiologist shows no concerning findings. CT scan returned showing E concern for pancreatitis. Despite only a slightly elevated lipase at 317 with between his pain and the CT findings this does seem to be a mild case of acute pancreatitis. He does have an elevated white count of 12.19. Between his elevated heart rate and leukocytosis he does meet SIRS criteria and a lactate will be ordered. He has been given a L fluid already. Lactate was within normal limits. I believe this leukocytosis is more likely a stress reaction rather than infection at this time. Urinalysis shows no concerning findings. He is otherwise doing well at this time and symptoms are much improved. Due to his acute pancreatitis I spoke to him about admission versus discharge. This time he is hesitant for admission due to not having insurance and he feels comfortable discharging home with follow-up with [facility]. Patient well be discharged home with oxycodone for pain and Zofran for nausea. Was informed to stay on a clear liquid diet. Was told to come back for worsening symptoms. Lab Data Labs: Lab Results 09/29/23 09/29/23 09/29/23 Range/Units 10:35 13:31 13:50 WBC 12.19 H (4.50-11.00) K/uL RBC 5.29 (4.30-5.90) m/uL Hgb 15.9 (13.5-17.5) gm/dL Hct 43.4 (37.0-53.0) % MCV 82 (80-100) fL MCH 30 (26-34) pg MCHC 37 H (32-36) gm/dL RDW Coeff of Ruben 12.5 (11.5-15.5) % Plt Count 169 (140-440) K/uL Neut % (Auto) 76.9 H (42.0-72.0) % Lymph % (Auto) 14.2 L (20-44) % Wolfe % (Auto) 7.4 (0.0-11.0) % Eos % (Auto) 1.1 (0.0-7.0) % Baso % (Auto) 0.2 (0.0-3.0) % Neut # (Auto) 9.40 H (1.7-7.0) K/uL Lymph # (Auto) 1.70 (0.90-2.90) K/uL Wolfe # (Auto) 0.90 (0.00-0.90) K/UL Eos # (Auto) 0.10 (0.00-0.50) K/uL Baso # (Auto) 0.00 (0.00-0.30) K/uL Abs Immat Gran (auto) 0.00 (0.00-0.30) K/uL Imm/Tot Granulo (auto) 0.2 % Sodium 134 L (135-149) mmol/L Potassium 4.0 (3.6-5.1) mmol/L Chloride 100 (96-114) mmol/L Carbon Dioxide 19 L (20-32) mmol/L Anion Gap 15 (7-15) mEq/L BUN 13 (5-24) mg/dL Creatinine 0.5 (0.5-1.5) mg/dL Estimated Creat Clear 196.62 Estimated GFR 127 ml/min Glucose 254 H (60-115) mg/dL Lactate (0.5-1.9) mmol/L Calcium 8.7 (8.4-10.6) mg/dL Total Bilirubin 1.2 (0.1-1.5) mg/dL AST 33 (12-35) U/L ALT 47 (4-50) U/L Alkaline Phosphatase 153 H (40-150) U/L Total Protein 8.8 H (6.0-8.3) g/dL Albumin 4.1 (3.3-5.0) g/dL Lipase 317 H (23-300) U/L Urine Color Yellow (Yellow) Urine Appearance Clear (Clear) Urine pH 6.0 (5.0-8.5) Ur Specific [place] 1.010 (1.000-1.030) Urine Protein Negative (Negative) Urine Glucose (UA) 2+ A (Negative) Urine Ketones 2+ A (Negative) Urine Blood Negative (Negative) Urine Nitrite Negative (Negative) Urine Bilirubin Negative (Negative) Urine Urobilinogen 0.2 (0.2-1.0) Ur Leukocyte Esterase Negative (Negative) Urine RBC 0-2 (0-2) Urine WBC 0-2 (0-5) Ur Squamous Epith Cells Few (None-Few) Urine Bacteria None (None) SARS-CoV-2 (PCR) Negative SARS-CoV-2 (Negative) Influenza Type A (PCR) Negative PCR FLU A (Negative) Influenza Type B (PCR) Negative PCR FLU B (Negative) RSV (PCR) Negative PCR RSV (Negative) Lab Acknowledgement Test Added POC Troponin I 0.00 L (0.01-0.04) ng/ml 09/29/23 Range/Units 14:32 WBC (4.50-11.00) K/uL RBC (4.30-5.90) m/uL Hgb (13.5-17.5) gm/dL Hct (37.0-53.0) % MCV (80-100) fL MCH (26-34) pg MCHC (32-36) gm/dL RDW Coeff of Ruben (11.5-15.5) % Plt Count (140-440) K/uL Neut % (Auto) (42.0-72.0) % Lymph % (Auto) (20-44) % Wolfe % (Auto) (0.0-11.0) % Eos % (Auto) (0.0-7.0) % Baso % (Auto) (0.0-3.0) % Neut # (Auto) (1.7-7.0) K/uL Lymph # (Auto) (0.90-2.90) K/uL Wolfe # (Auto) (0.00-0.90) K/UL Eos # (Auto) (0.00-0.50) K/uL Baso # (Auto) (0.00-0.30) K/uL Abs Immat Gran (auto) (0.00-0.30) K/uL Imm/Tot Granulo (auto) % Sodium (135-149) mmol/L Potassium (3.6-5.1) mmol/L Chloride (96-114) mmol/L Carbon Dioxide (20-32) mmol/L Anion Gap (7-15) mEq/L BUN (5-24) mg/dL Creatinine (0.5-1.5) mg/dL Estimated Creat Clear Estimated GFR ml/min Glucose (60-115) mg/dL Lactate 0.9 (0.5-1.9) mmol/L Calcium (8.4-10.6) mg/dL Total Bilirubin (0.1-1.5) mg/dL AST (12-35) U/L ALT (4-50) U/L Alkaline Phosphatase (40-150) U/L Total Protein (6.0-8.3) g/dL Albumin (3.3-5.0) g/dL Lipase (23-300) U/L Urine Color (Yellow) Urine Appearance (Clear) Urine pH (5.0-8.5) Ur Specific [place] (1.000-1.030) Urine Protein (Negative) Urine Glucose (UA) (Negative) Urine Ketones (Negative) Urine Blood (Negative) Urine Nitrite (Negative) Urine Bilirubin (Negative) Urine Urobilinogen (0.2-1.0) Ur Leukocyte Esterase (Negative) Urine RBC (0-2) Urine WBC (0-5) Ur Squamous Epith Cells (None-Few) Urine Bacteria (None) SARS-CoV-2 (PCR) (Negative) Influenza Type A (PCR) (Negative) Influenza Type B (PCR) (Negative) RSV (PCR) (Negative) Lab Acknowledgement POC Troponin I (0.01-0.04) ng/ml Imaging Data Thoracic spine x-ray: Radiologist's impression: Moderate degenerative changes of the thoracic spine without acute osseous abnormality. Dictated by Андрей Fonseca MD @ 09/29/2023 12:57:[address] scan abdomen pelvis: Radiologist's impression: 1. Moderate fat stranding is seen surrounding the pancreatic head with associated edema; findings are favored to represent acute pancreatitis. 2. Mild wall thickening of the proximal duodenum is favored to be reactive to adjacent pancreatic inflammation. 3. Moderate hepatic steatosis. Please note that all CT scans at this facility use dose modulation, iterative reconstruction, and/or weight-based dosing when appropriate to reduce radiation dose to as low as reasonably achievable. Dictated by Curly Adams MD @ 09/29/2023 12:55:47 PM ECG Data Attestation: I personally reviewed and interpreted this ECG as follows: Prior ECG tracings: available for review (07/19/2020 to) Interpretation: Normal sinus rhythm with a rate of 85 beats per minute, normal intervals, normal axis, no ST or T-wave abnormalities Discharge Plan Discharge Clinical Impression: Acute pancreatitis Qualifiers: Pancreatitis type: unspecified pancreatitis type Acute pancreatitis complication: no infection or necrosis Qualified Code(s): K85.90 - Acute pancreatitis without necrosis or infection, unspecified Patient Disposition: Home, Self-Care Condition: Improved Instructions: Pancreatitis (ED), Clear Liquid Diet (ED) Additional Instructions: Take the medication as prescribed. I recommend you take the oxycodone at a scheduled interval to stay ahead of the pain. Use Zofran as needed for nausea. Follow-up with [facility]. Return to emergency department for new or worsening symptoms. Eat a clear liquid diet. Prescriptions: New oxycodone 5 mg tablet 5 mg PO Q6H PRN (Reason: pain) Qty: 12 0RF ondansetron 4 mg tablet,disintegrating 4 mg PO Q6H Qty: 20 0RF No Action amlodipine 5 mg tablet 5 mg PO DAILY Patient Comments: TAKE ONE TABLET BY MOUTH EVERY DAY. lisinopril 10 mg tablet 10 mg PO DAILY Patient Comments: TAKE ONE TABLET BY MOUTH ONCE DAILY hydrochlorothiazide 25 mg tablet 25 mg PO DAILY Patient Comments: TAKE ONE TABLET BY MOUTH EVERY MORNING TO CONTROL HYPERTENSION glimepiride 2 mg tablet 2 mg PO DAILY Patient Comments: TAKE ONE TABLET BY MOUTH TWICE A DAY metformin 500 mg Tablet 1,000 mg PO BIDWM 30 Days Qty: 60 2RF atorvastatin 40 mg tablet 40 mg PO DAILY Qty: 30 2RF Novolin 70-30 FlexPen U-100 100 unit/mL (70-30) insulin pen 15 unit subcut BID Qty: 15 3RF Rx Instructions: 25U Qam, 15U before supper (instructions in [place] please). Please disregard previous Rx for insulin Follow Up/Referrals: Provider,Not a Local [Referring] - Stand Alone Forms: [facility] Info Instructions
[2023-09-29 10:56] LABS: Basophils Percent Auto 0.2 % (0.0-3.0); Eosinophils Percent Auto 1.1 % (0.0-7.0); Hematocrit 43.4 % (37.0-53.0); Hemoglobin* 15.9 gm/dL (13.5-17.5); Immature Granulocytes Pct Auto 0.2 %; Lymphocytes Percent Auto 14.2 % (20-44); Mean Corpuscular HGB Conc 37 gm/dL (32-36); Mean Corpuscular Hemoglobin 30 pg (26-34); Mean Corpuscular Volume 82 fL (80-100); Monocytes Percent Auto 7.4 % (0.0-11.0); Neutrophils Percent Auto 76.9 % (42.0-72.0); Platelet Count* 169 K/uL (140-440); RDW Coefficient of Variation % 12.5 % (11.5-15.5); Red Blood Count 5.29 m/uL (4.30-5.90); White Blood Count* 12.19 K/uL (4.50-11.00)
[2023-09-29 10:59] LABS: Slide Review Reflex No
[2023-09-29 11:23] LABS: Albumin* 4.1 g/dL (3.3-5.0); Chloride* 100 mmol/L (96-114)
[2023-09-29 11:24] LABS: Sodium* 134 mmol/L (135-149)
[2023-09-29 11:26] LABS: Alkaline Phosphatase* 153 U/L (40-150); Anion Gap 15 mEq/L (7-15); Aspartate Amino Transferase* 33 U/L (12-35); Bilirubin Total* 1.2 mg/dL (0.1-1.5); Blood Urea Nitrogen* 13 mg/dL (5-24); Calcium* 8.7 mg/dL (8.4-10.6); Carbon Dioxide* 19 mmol/L (20-32); Creatinine* 0.5 mg/dL (0.5-1.5); Est. Creatinine Clearance* 196.62; Estimated Glomerular Filt Rate 127 ml/min; Glucose* 254 mg/dL (60-115); Lipase* 317 U/L (23-300); Total Protein* 8.8 g/dL (6.0-8.3)
[2023-09-29 11:27] LABS: Alanine Aminotransferase* 47 U/L (4-50)
[2023-09-29 11:36] LABS: PCR FLU A Negative PCR FLU A (Negative); PCR FLU B Negative PCR FLU B (Negative); PCR RSV Negative PCR RSV (Negative); SARS PCR* Negative SARS-CoV-2 (Negative)
--- NOTE | 2023-09-29 11:39 | CT_ITS ---
Patient: MARIA EUGENIA ARCHULETA Facility:?[facility] Patient ID:?[id number] Site Patient ID:?[id number]. Site :?[id number] Study:?CT-Abdomen/Pelvis W/ 106CC ISOVUE 370-09/29/2023 12:37:54 PM Ordering Physician:HUBERT Final Report: Indication: Diffuse back pain, epigastric pain Technique: CT of the abdomen and pelvis was obtained with 106 mL of Isovue 370 intravenous contrast. Please note that all CT scans at this facility use dose modulation, iterative reconstruction, and/or weight-based dosing when appropriate to reduce radiation dose to as low as reasonably achievable. Comparison: None. Findings: Lower thorax: 4 millimeter right lower lobe pulmonary nodule (3). Consensus guidelines for incidentally detected lung nodule(s) less than [address], not applicable if known malignancy or immunocompromise: Low risk: No routine follow-up. High risk without suspicious morphology AND not in upper lobe: Consider CT at 12 months. High risk AND nodule(s) with suspicious morphology OR in upper lobe: Strongly consider CT at 12 months. (Jania, et al. Radiology 2017) Liver and biliary tree: Moderate hepatic steatosis. Gallbladder: Normal. Spleen: Normal. Pancreas: Moderate fat stranding is seen surrounding the pancreatic head with associated edema. Adrenal glands: Normal. Kidneys and ureters: Medullary calcifications versus nonobstructing renal calculi measuring up to 3 millimeter in the left kidney (2/66). No hydronephrosis. Subcentimeter hypoattenuating lesions are too small to characterize and favored to represent cysts. Gastrointestinal tract: [id number] sigmoid colonic diverticulosis without CT evidence of acute diverticulitis. Normal appendix. No evidence of bowel obstruction. Mild wall thickening of the proximal duodenum. Peritoneal cavity: Normal. Bladder: Normal. Pelvic organs: Normal. Vasculature: Circumaortic left renal vein. Lymph nodes: Normal. Abdominal wall: Trace fat containing periumbilical hernia. Musculoskeletal: Normal. Impression: 1. Moderate fat stranding is seen surrounding the pancreatic head with associated edema; findings are favored to represent acute pancreatitis. 2. Mild wall thickening of the proximal duodenum is favored to be reactive to adjacent pancreatic inflammation. 3. Moderate hepatic steatosis. Please note that all CT scans at this facility use dose modulation, iterative reconstruction, and/or weight-based dosing when appropriate to reduce radiation dose to as low as reasonably achievable. Dictated by Curly Adams MD @ 09/29/2023 12:55:47 PM Signed by:?Curly Adams MD @09/29/2023 12:55:47 PM (Electronic Signature)
--- NOTE | 2023-09-29 11:55 | XR_ITS ---
Patient: MARIA EUGENIA ARCHULETA Facility:?[facility] Patient ID:?[id number] Site Patient ID:?[id number]. Site :?[id number] Study:?XRay-Spine Thoracic -09/29/2023 12:44:28 PM Ordering Physician:HUBERT Final Report: Indication: Back pain Comparison: None available. Technique: AP swimmer`s and lateral views thoracic spine were obtained. Findings : The thoracic vertebral body heights are grossly maintained in satisfactory alignment with mild straightening of the normal thoracic kyphosis. There is no significant spondylolisthesis. No evidence of displaced fracture. There is moderate degenerative disc disease with disc height loss and marginal osteophyte formation. The soft tissues are unremarkable. Impression: Moderate degenerative changes of the thoracic spine without acute osseous abnormality. Dictated by Андрей Fonseca MD @ 09/29/2023 12:57:34 PM Signed by:?Андрей Fonseca MD @09/29/2023 12:57:34 PM (Electronic Signature)
[2023-09-29] MEDS: MAG HYDROX/ALUMINUM HYD/SIMETH 30 ML ORAL.SUSP 15 ML PO (12:12)
[2023-09-29] MEDS: KETOROLAC 15 MG/ML inj IVP (12:12)
[2023-09-29] MEDS: lidocaine HCL 4 % TOP SOLN 50 ML BOTTLE 7.5 ML PO (12:12)
[2023-09-29] MEDS: LACTATED RINGERS 1000 ML 1,000 ML IV (12:55)
[2023-09-29 14:04] LABS: Appearance Urine Clear (Clear); Bilirubin Urine Negative (Negative); Blood Urine Negative (Negative); Color Urine Yellow (Yellow); Glucose Urine 2+ (Negative); Ketones Urine 2+ (Negative); Leukocyte Esterase Urine Negative (Negative); Nitrite Urine Negative (Negative); Protein Urine Negative (Negative); Urobilinogen Urine 0.2 (0.2-1.0)
[2023-09-29 14:25] LABS: RBC Urine 0-2 (0-2); Squamous Epithelial Cell Urine Few (None-Few); WBC Urine 0-2 (0-5)
[2023-09-29 14:35] LABS: Lactate* 0.9 mmol/L (0.5-1.9)
== END 2023-09-29 15:26 | disposition home or self-care (01) ==
PROVIDERS: Emergency Provider Student in an Organized Health Care Education/Training Program; PCP Nurse Practitioner Family
DX: K85.90 Acute pancreatitis without necrosis or infection, unspecified (principal)
CPT/HCPCS: 36415; 72072; 74177; 80053; 81001; 83605; 83690; 84484; 85025; 87631; 93005; 96374; 96375; 99283; 99284; A9270; J1885; J2270; J2405; J7120; Q9967

== ENCOUNTER 2024-10-05 12:03 | Inpatient (IN) | payer OTHER, SELFPAY ==
[2024-10-05] VITALS (38 sets, daily range): BP systolic 122–164; BP diastolic 90–116; PULSE 73–96; RESP 12–20; TEMP 36.2–37; O2SAT 93–99; BMI 29.4
--- OUTSIDE RECORDS SUMMARY | 2024-10-05 12:06 | XMS_ITS | Data Portability ---
Author Organization [facility] - Med ePadSHELBY Hernandez OFFICE Address [address] [place] [address] [place] [address] Assessment Encounter Date Assessment Date Assessment LastModified by Organization Details LastModified Time 01/18/2024 01/18/2024 - per below - back exercises provided - f/u 6 months, sooner if needed - labs ordered today [facility] Not available 01/18/2024 11:44:44 06/09/2024 06/09/2024 - DM2 and HTN st able - treat OE - f/u with labs in July Not available 06/09/2024 10:44:27 09/26/2024 09/26/2024 - poor control o f hypertriglyceridemia and DM2 - increase insulin, add Fibrate and continue high intensity statin son Not available 09/26/2024 14:02:35 Plan of Treatment Reminders Order Date Submit Date Provider Last Modified By Organization Details Last Modified Time Details Appointments None recorded. Lab lipid panel, serum [address]- Lab, [address] [place], [address], 14:03:58 HbA1c (hemoglobin A1c), blood [address]- Lab, [address] [place], [address], 14:03:58 CMP, serum or plasma [address]- Lab, [address] [place], [address], 5 14:03:58 CMP, serum or plasma 2023 024 [facility]- Lab, [address] [place], [address], 4 14:10:56 hemoglobin A1c, QN, blood [email or web address] [place] [address]- Lab, [address] [place], [address], 5 21:37:17 lipid panel, serum 2023 024 [email or web address] 21 [facility]- Lab, [address] [place], [address], 5 21:37:18 hemoglobin A1c, QN, blood 2023 024 [facility]- Lab, [address] [place], [address], 4 11:18:02 Referral community health worker referral 2023 024 [email or web address] Not available 4 12:54:38 Procedures None recorded. Surgeries None recorded. Imaging None recorded. Medication Orders fenofibrate 160 mg tablet [address], [address], 5 13:07:17 neomycin-po lymyxin-hyd rocort 3.5 mg-10,000 unit/mL-1 % ear drops,susp [address], [address], 4 12:36:08 ofloxacin 0.3 % ear drops [address], [place], [address], 4 12:37:16 lisinopril 10 mg tablet [address], [address], 5 09:26:24 metformin ER 500 mg tablet,exte nded release 24 hr [address], [address], 4 14:36:18 omeprazole 20 mg capsule,del ayed release [address], [address], 4 10:08:42 amlodipine 5 mg tablet 2023 024 [facility], [address] [place], [address], 4 10:08:28 atorvastati n 40 mg tablet [address], [address], 4 10:08:37 metformin ER 500 mg tablet,exte nded release 24 hr [address], [address], 4 11:56:51 Patient TargetsNo targets recorded. Patient Instructions Encounter Date Encounter Id Patient Instructions Last Modified By Organization Details Last Modified Time 10/29/2023 [id number] Increase metformin to 2 tab in the morning Will have community Health worker call to check on your blood sugars in 2-3 weeks If sugars high we will increase the metformin to 2 tabs in the morning and start one in the evening recheck labs in 3 months and follow up appt - in [place] Not available 10/29/2023 12:04:35 Reason for Referral Community Health Worker Refe rral for Uncontrolled type 2 diabetes mellitus poor diabetes control, adjusting medications, follow up on home blood sugar levels Referring Physician: Marci Brandon, Family Medicine, Encounter Date: 10/29/2023 Results Created Date Observation Date Name Description Value Unit Range Abnormal Flag Note LastModifiedBy Organization Detail LastModifiedTime 04/19/20 24 04/22/2024 CMP, serum or plasm a total cholesterol 186 normal Not Available [facility]- Lab [address] [place], [address], 04/19/2024 12:08:08 04/19/20 24 04/22/2024 CMP, serum or plasm a triglyceride s 977 high Not Available [facility]- Lab [address] [place], [address], 04/19/2024 12:08:08 04/19/20 24 04/22/2024 CMP, serum or plasm a HDL 32 low Not Available [facility] Lab [address] [place], [address], 04/19/2024 12:08:08 04/19/20 24 04/22/2024 CMP, serum or plasm a LDL -41 normal Not Available [facility] Lab [address] [place], [address], 04/19/2024 12:08:08 04/19/2004/22/2024 CMP, serum or plasm a creatinine 0.[address] [facility]- Lab [address] [place], [address], 04/19/2024 12:08:08 04/19/20 24 04/22/2024 CMP, serum or plasm a ALT 51 high Not Available [facility] Lab [address] [place], [address], 04/19/2024 12:08:08 11/25/19 24 11/25/2023 hemog lobin A1c, QN, blood ALT 52 high Not Available [facility]- Lab [address] [place], [address], 11/25/2023 11:56:53 11/25/19 24 11/25/2023 hemog lobin A1c, QN, blood creatinine 0.[address] [facility]- Lab [address] [place], [address], 11/25/2023 11:56:53 11/25/19 24 11/25/2023 hemog lobin A1c, QN, blood total cholesterol 172 Not Available [facility]- Lab [address] [place], [address], 11/25/2023 11:56:53 11/25/19 24 11/25/2023 hemog lobin A1c, QN, blood triglyceride s 456 high Not Available [facility]- Lab [address] [place], [address], 11/25/2023 11:56:53 11/25/19 24 11/25/2023 hemog lobin A1c, QN, blood HDL 27 low Not Available [facility] Lab [address] [place], [address], 11/25/2023 11:56:53 11/25/19 24 11/25/2023 hemog lobin A1c, QN, blood LDL >400 Not Available [facility] Lab [address] [place], [address], 11/25/2023 11:56:53 11/25/19 24 11/25/2023 hemog lobin A1c, QN, blood A1C 11.4 high Not Available [facility] Lab [address] [place], [address], 11/25/2023 11:56:53 11/25/19 24 11/25/2023 lipid panel w/ direc t LDL, serum ALT 52 high Not Available [facility]- Lab [address] [place], [address], 11/25/2023 11:54:38 11/25/19 24 11/25/2023 lipid panel w/ direc t LDL, serum creatinine 0.[address] [facility]- Lab [address] [place], [address], 11/25/2023 11:54:38 11/25/19 24 11/25/2023 lipid panel w/ direc t LDL, serum total cholesterol 172 Not Available [facility]- Lab [address] [place], [address], 11/25/2023 11:54:38 11/25/19 24 11/25/2023 lipid panel w/ direc t LDL, serum triglyceride s 456 high Not Available [facility]- Lab [address] [place], [address], 11/25/2023 11:54:38 11/25/19 24 11/25/2023 lipid panel w/ direc t LDL, serum HDL 27 low Not Available [facility] Lab [address] [place], [address], 11/25/2023 11:54:38 11/25/19 24 11/25/2023 lipid panel w/ dire t LDL, serum LDL >400 Not Available [facility] Lab [address] [place], [address], 11/25/2023 11:54:38 11/25/19 24 11/25/2023 lipid panel w/ dire t LDL, serum A1C 11.4 high Not Available [facility] Lab [address] [place], [address], 11/25/2023 11:54:38 10/11/19 24 10/11/2023 CBC w/ auto diff white blood count 7.8 Not Available [facility]- Lab [address] [place], [address], 10/27/2023 16:22:58 10/11/19 24 10/11/2023 CBC w/ auto diff hemoglobin 14.9 Not Available [facility] Lab [address] [place], [address], 10/27/2023 16:22:58 10/11/19 24 10/11/2023 CBC w/ auto diff platelet count 215 Not Available [facility] Lab [address] [place], [address], 10/27/2023 16:22:58 10/21/19 24 10/21/2023 CMP, serum or plasm a ALT 52 high Not Available [facility] Lab [address] [place], [address], 10/22/2023 15:20:12 10/21/19 24 10/21/2023 CMP, serum or plasm a creatinine 0.93 Not Available [facility] Lab [address] [place], [address], 10/22/2023 15:20:12 10/21/19 24 10/21/2023 CMP, serum or plasm a total cholesterol 172 Not Available [facility] Lab [address] [place], [address], 10/22/2023 15:20:12 10/21/19 24 10/21/2023 CMP, serum or plasm a triglyceride s 456 high Not Available [facility] Lab [address] [place], [address], 10/22/2023 15:20:12 10/21/19 24 10/21/2023 CMP, serum or plasm a HDL 27 low Not Available [facility] Lab [address] [place], [address], 10/22/2023 15:20:12 10/21/19 24 10/21/2023 CMP, serum or plasm a LDL >400 Not Available [facility] Lab [address] [place], [address], 10/22/2023 15:20:12 10/21/19 24 10/21/2023 CMP, serum or plasm a A1C 11.4 high Not Available [facility]- Lab [address] [place], [address], 10/22/2023 15:20:12 01/27/20 24 01/27/2024 CMP, serum or plasm a glucose 356 abnormal Not Available [facility] [address] [place], [address], 01/27/2024 14:09:39 01/27/20 24 01/27/2024 CMP, serum or plasm a triglyceride s 927 high Not Available [facility] [address] [place], [address], 01/27/2024 14:09:39 01/27/20 24 01/27/2024 CMP, serum or plasm a A1C 10.1 high Not Available [facility] [address] [place], [address], 01/27/2024 14:09:39 04/18/20 24 04/18/2024 hemog lobin A1c, QN, blood A1C 10.7 high Not Available [facility] Lab [address] [place], [address], 04/18/2024 11:14:47 04/18/20 24 04/18/2024 hemog lobin A1c, QN, blood white blood count 8.53 normal Not Available [facility]- Lab [address] [place], [address], 04/18/2024 11:14:47 04/18/20 24 04/18/2024 hemog lobin A1c, QN, blood plt 197 normal Not Available [facility] Lab [address] [place], [address], 04/18/2024 11:14:47 04/18/20 24 04/18/2024 lipid panel w/ direc t LDL, serum total cholesterol 186 normal Not Available [facility]- Lab [address] [place], [address], 04/18/2024 14:12:52 04/18/20 24 04/18/2024 lipid panel w/ direc t LDL, serum triglyceride s 977 high Not Available [facility]- Lab [address] [place], [address], 04/18/2024 14:12:52 04/18/20 24 04/18/2024 lipid panel w/ dire t LDL, serum HDL 32 low Not Available [facility] Lab [address] [place], [address], 04/18/2024 14:12:52 04/18/20 24 04/18/2024 lipid panel w/ [facility] t LDL, serum LDL -41 normal Not Available [facility] Lab [address] [place], [address], 04/18/2024 14:12:52 04/18/20 24 04/18/2024 lipid panel w/ dire t LDL, serum creatinine 0.[address] [facility]- Lab [address] [place], [address], 04/18/2024 14:12:52 04/18/20 24 04/18/2024 lipid panel w/ dire t LDL, serum ALT 51 high Not Available [facility] Lab [address] [place], [address], 04/18/2024 14:12:52 04/18/20 24 04/18/2024 CBC A1C 10.7 high Not Available [facility] Lab [address] [place], [address], 04/19/2024 12:13:52 04/18/20 24 04/18/2024 CBC white blood count 8.53 normal Not Available [facility]- Lab [address] [place], [address], 04/19/2024 12:13:52 04/18/20 24 04/18/2024 CBC plt 197 normal Not Available [facility]- Lab [address] [place], [address], 04/19/2024 12:13:52 09/16/19 25 09/16/2024 hemog lobin A1c, QN, blood A1C 11.0 high Not Available [facility]- Lab [address] [place], [address], 09/27/2024 17:13:41 09/16/19 25 09/16/2024 lipid panel w/ direc t LDL, serum total cholesterol 210 high Not Available [facility]- Lab [address] [place], [address], 09/27/2024 17:10:33 09/16/19 25 09/16/2024 lipid panel w/ direc t LDL, serum triglyceride s 1415 high Not Available [facility]- Lab [address] [place], [address], 09/27/2024 17:10:33 09/16/19 25 09/16/2024 lipid panel w/ direc t LDL, serum HDL 29 low Not Available [facility] Lab [address] [place], [address], 09/27/2024 17:10:33 09/16/19 25 09/16/2024 lipid panel w/ direc t LDL, serum LDL -102 LDL may be inacc urate due to high Trigl yceri gregory Not Available [facility] Lab [address] [place], [address], 09/27/2024 17:10:33 Result Notes None recorded. Problems Name Problem SNOMED Code Status Onset Date Resolution Date Notes Provider Name and Address Organization Details Recorded Time Insulin treated type 2 diabetes mellitus 274407137 Active 2022 Neyda Moore MD [address] [place], [address] , [facility] [employer] 3 11:04:25 Pancreat itis 11439476 Completed 202208/03/2022 hx recurren t episodes Removal Reason: resolved - hospital ized August 2022 Mild 09/2023 - ER visit lipase mild elevatio n 317 MARCI BRANDON MD [address] [facility] [place], [address], [facility] [employer] 5 21:39:59 Nodule of lung 804457602 Active 2023 R lower lobe [address] 09/2023 MARCI BRANDON MD [address] [facility] [place], [address], [facility] [employer] 4 09:04:23 Steatosi s of liver 144165656 Active 2023 CT 09/2023 MARCI BRANDON MD [address] [facility] [place], [address], [facility] [employer] 4 09:04:56 Gastroes ophageal reflux disease 626414511 Active 2023 vs biliary colic, PPI started 01/24 Neyda Moore MD [address] [facility] [place], [address], [facility] [employer] 4 11:42:57 Lesion of penis 281399689 Active 2023 asymptom atic Neyda Moore MD [address] [facility] [place], [address], [facility] [employer] 4 11:44:10 Hypertri glycerid emia 061290508 Active 2023 Neyda Moore MD [address] [facility] [place], [address], [facility] [employer] 5 10:24:22 Pancreat itis 05136249 Active 2022 hx recurren t episodes MARCI BRANDON MD [address] [facility] [place], [address], [facility] [employer] 5 21:39:59 [facility] hyperten jake 08338839 Active 2020 Parminder Jang MD [address] [place], [address], [facility] [employer] [facility] [facility] 2 18:39:01 Type 2 diabetes mellitus 02136689 Active 2020 Parminder Jang MD [address] [place], [address], [facility] 2 18:39:15 Dyslipid emia 221569524 Active 2020 Parminder Jang MD [address] [place], [address], [facility] 2 18:38:47 History of divertic ulitis 55759497492 9100 Active 2011 Lucretia Wagner NP [address] [place], [address], [facility] 1 10:03:56 Problem Notes None recorded. Medical Equipment None Reported. Allergies No known drug allergies Medications Name Sig Start Date Stop Date Status Note LastModified by Organization Details LastModified Time atorvastat in 40 mg tablet TAKE ONE TABLET BY MOUTH TWICE A DAY active Not Available Not Available No t Available metformin 500 mg tablet TAKE TWO TABLETS( 1000MG) BY MOUTH TWICE DAILY WITH MEALS FOR 30 DAYS 09/04 completed Not Available Not Available Not Available atorvastat in 10 mg tablet TAKE ONE TABLET BY MOUTH EVERY DAY. 07/24 completed Not Available Not Available Not Available metronidaz ole 500 mg tablet take 1 tablet by oral route every 8 hours 03/02 completed Not Available Not Available Not Available amlodipine 5 mg tablet TAKE ONE TABLET BY MOUTH EVERY DAY active Not Available Not Available No t Available ciprofloxa moises 500 mg tablet take 1 tablet by oral route every 12 hours 03/02 completed Not Available Not Available Not Available sulfametho xazole 800 mg-trimeth oprim 160 mg tablet TAKE ONE TABLET BY MOUTH EVERY 12 HOURS 11/12 completed Not Available Not Available Not Available glimepirid e 2 mg tablet TAKE ONE TABLET BY MOUTH TWICE A DAY 09/04 completed Not Available Not Available Not Available ofloxacin 0.3 % ear drops INSTILL 10 DROPS INTO AFFECTED EAR(S) BY OTIC ROUTE ONCE DAILY active Not Available Not Available No t Available Ear Wax Removal Drops 6.5 % INSTILL 5 DROPS INTO AFFECTED EAR(S) 2 TIMES PER DAY 09/26 completed Not Available Not Available Not Available lisinopril 10 mg tablet TAKE ONE TABLET BY MOUTH ONCE DAILY active Not Available Not Available No t Available omeprazole 20 mg capsule,de layed release TAKE ONE CAPSULE BY MOUTH EVERY DAY active Not Available Not Available No t Available lisinopril 5 mg tablet take 1 tablet by oral route every day 07/30 completed Not Available Not Available Not Available hydrochlor othiazide 25 mg tablet TAKE ONE TABLET BY MOUTH EVERY MORNING TO CONTROL HYPERTEN JAKE 07/24 completed Not Available Not Available Not Available polyethyle ne glycol 3350 17 gram/dose oral powder DISSOLVE 17GM IN LIQUID AND DRINK ONCE DAILY NEEDED 10/28 completed Not Available Not Available Not Available ondansetro n 4 mg disintegra ting tablet DISSOLVE 1 TABLET POR BOCA Q 6 HOURS. active Not Available Not Available No t Available metformin ER 500 mg tablet,ext ended release 24 hr Take 2 tablets twice a day by oral route. 2024 active Not Available Not Available Not Avai lable oxycodone 5 mg tablet TAKE 1 TABLET POR BOCA EVERY 6 HOURS SOLO CUANDO LO NECESITE FOR DOLOR. 10/28 completed Not Available Not Available Not Available neomycin-p olymyxin-h ydrocort 3.5 mg-10,000 unit/mL-1 % ear drops,susp INSTILL 4 DROPS INTO AFFECTED EAR(S) BY OTIC ROUTE 3 TIMES PER DAY followed by cotton 06/09 completed Not Available Not Available Not Available fenofibrat e 160 mg tablet Take 1 tablet every day by oral route for 90 days. 2024 active Not Available Not Available Not Avai lable Novolin 70/30 U-100 Insulin -33 units subcut with morning meal.-30 units subcut with evening meal. 04/26 completed 04/26/24 change to kwik pens. JONNATHAN 026 [id number] x2 vials DVD 01/13/24 [id number] X 1 vial 4 AM: 5 [id number] x2 vials LRB: 11/30/24 [id number] x 2 vials 1 vial 5 [id number] 3 DO: [id number] exp: 5 1 vial05/04/23 LRB: 025 [id number] x1 vial12/03 LRB: 025, [id number] x 2 vials06/25 GT x2 vials [id number] S24 exp: [id number] M11 EXP:08/25 LSM- Exp: 025 Lot: [id number] x2 vials ASM [id number] : Lot: [id number] Exp: LRB: 4, [id number] 1 vial 12/01/19 25 [id number] 1 vial 12/01/19 25 [id number] 2 vials 12/01/19 25 [id number] 2vials [id number] EXP:;V O Not Available Not Available Not Available Humulin 70/30 U-100 Insulin KwikPen 100 unit/mL subcutaneo us Take 33 U SQ in morning and 30 U in the evening with meals 2023 active JONNATHAN 5: Lot: [id number] Exp: 5 x2LSM 07/04/24 : Lot: [id number] Exp: 05/04/25 x2LSM 06/09/24 [id number] Exp: 05/04/25 x1 boxLSM 04/26/24 [id number] Exp: 05/04/25 x1 box Not Available Not Available Not Available Vitals Date Recorded Body height Body mass index (BMI) Body weight Heart rate Oxygen saturation Oxygen saturation in Arterial blood by Pulse oximetry Body temperature Systolic blood pressure Diastolic blood pressure Provider Name and Address Organization Details Last Updated DateTime 4 179.07 cm 30.6 kg/m2 88876.9 5 g 84 /min 95 % 95 % 96.8 [degF] 127 mm[Hg] 84 mm[Hg] Tania Barrington [facility] 4 11:40:06 Date Recorded Body height Body mass index (BMI) Body weight Heart rate Systolic blood pressure Diastolic blood pressure Provider Name and Address Organization Details Last Updated DateTime 4 179.07 cm 30.3 kg/m2 05566.7 7 g 91 /min 130 mm[Hg] 90 mm[Hg] Neyda Moore MD [address] [place], [address], [facility] [employer] 4 11:32:21 Date Recorded Body height Body mass index (BMI) Body weight Heart rate Oxygen saturation Oxygen saturation in Arterial blood by Pulse oximetry Systolic blood pressure Diastolic blood pressure Provider Name and Address Organization Details Last Updated DateTime 4 179.07 cm 30.1 kg/m2 62329.1 7 g 82 /min 97 % 97 % 122 mm[Hg] 82 mm[Hg] Neyda Moore MD [address] [place], [address], [facility] [employer] 4 14:01:15 Date Recorded Body height Provider Name an d Address Organization Details Last Updated DateTime 06/09/2024 179.07 cm Neyda Moore MD [address] [place], [address], [facility] [employer] 06/09/2024 11:09:18 Date Recorded Body height Heart rate Oxygen saturation Oxygen saturation in Arterial blood by Pulse oximetry Systolic blood pressure Diastolic blood pressure Provider Name and Address Organization Details Last Updated DateTime 5 179.07 cm 95 /min 94 % 94 % 111 mm[Hg] 84 mm[Hg] Neyda Moore MD [address] [place], [address], [facility] 5 13:54:32 Social History Question Answer Notes LastModified by Organizat ion Details LastModified Time Tobacco Smoking Status Current Every Day Smoker 1-2 cigars at night Lucretia Wagner, EDWINA [address] [place], [address], [facility] 11/28/2020 10:31:49 What Is Your Level Of Alcohol Consumption? Occasional Information not available 11/28/2020 Sex: Unknown Functional Status Question Answer Note LastModified by Organizat ion Details LastModified Time What is your exercise level? Active job Information not available 11/28/2020 Mental Status None recorded. Family History Relationship Description Onset Age of this Age Resolved Age Notes LastModified by Organization Details LastModified Time Brother Diabetes mellitus Not available 2020 10:30:45 Brother Dyslipidemia Not avai lable 11/28/2020 10:31:13 Mother Dyslipidemia Not avail able 11/28/2020 10:31:13 Sister Dyslipidemia Not avail able 11/28/2020 10:31:13 Medical History Condition Response Diabetes Y Kidney Stones Y Diverticulitis N Immunizations Vaccine Type Date Status Note Provider Nam e and Address Organization Details Recorded Time COVID-19, mRNA, LNP-S, PF, 30 mcg/0.3 mL dose 11/09/2020 completed MARCI BRANDON MD [address] [place], [address], [email or web address] 11/02/2023 17:40:02 COVID-19, mRNA, LNP-S, PF, 30 mcg/0.3 mL dose 11/30/2020 completed MARCI BRANDON MD [address] [place], [address], [facility] 11/02/2023 17:40:02 Past Encounters Encounter ID Performer Location Encounter Start Date Encounter Closed Date Diagnosis/Indication Diagnosis SNOMED-CT Code Diagnosis ICD10 Code Diagnosis Note [id number] MD MAURICE Haider OFFICE [address] [place] [address] 05/17/2020 18:38:37 05/17/2020 19:44:41 Acute otitis media 8040652 H66.91 [id number] MD MAURICE Haider OFFICE [address] [place] [address] 05/31/2020 17:58:06 05/31/2020 18:58:01 Otitis externa 5362339 H60.91 Essential hypertension 40717423 I10 Type 2 elvin betes mellitus without complication 249513875 E11.9 Acute otitis media 30170 03 H66.91 [id number] Parminder Jang MD [facility] [address] [facility] [address] 07/30/2020 14:57:57 07/30/2020 17:48:37 Type 2 diabetes mellitus without complication 452027234 E11.9 [id number] Parminder Jang [facility] [address] [facility] [place] [address] 09/27/2020 10:14:49 09/27/2020 10:53:37 Type 2 diabetes mellitus without complication 082385776 E11.9 control could improve with incr in metformin, vision should be checked if not better Acute otitis media 72489 03 H66.91 [id number] Parminder Jang MD [facility] OFFICE [address] [place] [address] 10/09/2020 19:08:14 10/10/2020 11:59:43 Type 2 diabetes mellitus without complication 763326827 E11.9 control could improve with incr in metformin, vision should be checked if not better [id number] Lucretia Wagner NP [facility] [address] [facility] [address] 11/28/2020 10:20:46 11/28/2020 11:03:57 Essential hypertension 28880052 I10 BP uncontroll ed today. Patient has a home BP cuff. Will check BP at home x 1-2 weeks and call us with numbers - consider changing medication s at that time. Do not want to base change off of one reading. Type 2 elvin betes mellitus without complication 191081970 E11.9 Home glucose monitoring shows greatly improved sugars. Symptoms also improved. Check A1c in 2 months and have in-person follow up thereafter . [id number] Lucretia Wagner NP [facility] [address] [place] [address] 01/30/2021 10:06:52 01/30/2021 12:03:04 Type 2 diabetes mellitus without complication 662210490 E11.9 Sugars are within goal range. Glimeperid e occasional ly causing some stomach pain but patient wishes to continue. Check A1c in 3 months and have in-person follow up thereafter . Patient has refills through at least 09/2021. Essential hypertension 72701476 I10 Systolic BP seems to be in goal range, but not diastolic (patient reports ~105). Advised that he check BP ~2 hours after taking BP medication s and after resting 5 minutes. Will check BP at home x 1-2 weeks and call us if diastolic remains >90. Consider increasing Lisinopril dose at that time. Plans to meet with Sylvia Marcus today. Patient has refills through at least 09/2021. 76202 Parminder Jang MD [facility] [address] [place] [address] 05/28/2021 19:35:40 05/28/2021 19:52:07 Type 2 diabetes mellitus without complication 726051100 E11.9 control sounds good but BP needs improvemen t 53110 Parminder Jang MD [facility] [address] [place] [address] 09/26/2021 12:11:24 09/26/2021 13:16:33 Type 2 diabetes mellitus without complication 456134086 E11.9 poor control, needs to incr glimperide to one twice a day History of urinary stone 993661229 Z87.442 told in past of stones but no imaging available Benign ess ential hypertension 3767421 I10 needs add amlodipine 43107 MD [facility] [address] [place] [address] 10/14/2021 17:09:19 10/15/2021 12:18:15 Type 2 diabetes mellitus without complication 280773809 E11.9 poor control, needs to incr glimperide to two twice a day History of urinary stone 286425121 Z87.442 prob has UTI now, poss related to stones, check prostate next visit 99652 MD [facility] [address] [place] [address] 11/12/2021 19:31:24 11/12/2021 20:04:25 Type 2 diabetes mellitus without complication 914013558 E11.9 poor control, needs to incr glimperide to two twice a day History of calculus of kidney 095326819 Z87.442 still has wbc's in urine Essential hypertension 53240143 I10 control improving 95401 Parminder Jang MD [facility] [address] [place] [address] 02/11/2022 17:53:18 02/11/2022 19:04:43 Type 2 diabetes mellitus without complication 618759650 E11.9 last HBA1C 11, was 8 last year, small amt of microalb Essential hypertension 83242324 I10 last BP 139/94 Hyperlipidemia 54345356 E78.5 last cholestero l 173 with elev triglyceri gregory 499 21884 [facility] [address] [place] [address] 07/24/2022 11:29:52 07/24/2022 12:30:50 Hypertensive disorder 70379435 I10 He states he was told not to take hctz for reasons unclear. Will verify labs and repeat BP, then decide on further bp mgmt. Last recording at hosp d/c was sbp 160, but unclear what component may have been pain. Cont lisinopril 10mg and amlodipine 5mg. Can titrate these further as well. Uncontroll ed type 2 diabetes mellitus 745971092 E11.65 Last A1C 11. Now on 70/30 insulin. Cont 25/15 for now.Refer to CHW to ensure safe insulin usage and possible adjustment . Warm hand off to CHW to review sx of hypoglycem ia.Discuss ed how he can get 70/30 refills and communicat ed to front office manager staff: He needs more bottles as he was only given enough for 4 days. He also needs lancets and possibly strips for his meter. If he shows, give him a book and tell him to record readings each day before eating and some 2 hours after eating. Relay to Thursday staff if he does not show today.Spen t time discussing avoidance of simple sugars w/examples Discussed importance of good BG control to avoid future pancreatit is events. Cont metformin. Investigat ing rationale for concurrent glimeperid e and 70/30Next visit, discuss RHM: dental, eye Diabetes mellitus 431278 09 E11.9 Exposure to chlamydia 26 34589625 104 Z20.2 Needs verificati on of successful treatmentS cheduled 08/14-confz[place]ida [place] [address] [facility] [address] [place] [address] 09/04/2022 10:39:39 09/04/2022 12:38:48 Type 2 diabetes mellitus 54860492 E11.9 Hospitaliz ation for pancreatit is d/t high BGHad lengthy discussion re: risks of long-term poorly managed DM.Cont metfromin BID, but change to ER. Does not tolerate higher dose.Incre ase 70/30 to 25/20. Discussed watching to low BGWill retrial CHW referral. Pt connect with CHW while in clinic as she happened to be there.Pt requesting DM referral, but d/t wait, will schedule with vital pay on his own.Rec dental apptF/u 2 weeks as OB. Pt agreeable. Hyperlipidemia 64396471 E78.5 Renewal of prescription 179111484 Z76.0 Hypertensive disorder 38 493630 I10 Cont lisinopril and amlodipine Good control today 69213 MACK PICKARD [facility] [address] [place] [address] 09/18/2022 09:51:01 09/18/2022 10:48:00 Left lower quadrant pain 055034276 R10.32 Ddx includes excess stool, diverticul itis. other. No fever or acute abdomen picture.Ur gent abd x-ray. May need CT.Labs Low back pain 896692579 M54.50 Author will bring in back braceTrial of ibuprofen prn. Discussed moderated use r/t GI side effects.Tr ial of OTC patches, creams Uncontroll ed type 2 diabetes mellitus 765019260 E11.65 A1C 9-somewhat inconsiste nt with reported readings, reduced sugar, and higher insulin requiremen ts, but limited number availalbe for review. We discussed how to take different readings, different times of day.Provid ed with lancets and syringes.S uspect wt last visit was inaccurate . Cont metformin. Phone call after lab and x-ray results. [id number] MARA PICKARD-[facility] [address] [facility] [address] [place] [address] 09/25/2022 10:27:24 09/25/2022 11:01:35 Abdominal pain 57641865 R10.9 Intermitte nt. No worsening. X-ray should sig stool which is likely cause. Pt denies constipati on, but will have laxative on hand for when he has abdominal pain. pt to report if worsened sx.Increas e activity and water to help prevent. Type 2 elvin betes mellitus 93210699 E11.9 Hospitaliz ation for pancreatit is d/t high BG, but A1C: A1C 11.4->11.2 08/14/22->9 .08 09/11/22->8. 33% 09/24/22Con t metfromin BID. Does not tolerate higher dose.Cont 70/30 to 25/20. Discussed watching to low BG (has not had)DM opth referral [id number] [facility]ARD[facility] [address] [place] [address] 11/11/2022 15:40:48 11/11/2022 16:33:15 Screening for malignant neoplasm of colon 616712197 Z12.11 Uncontroll ed type 2 diabetes mellitus 201379232 E11.65 A1C 11.4->11.2 08/14/22->9 .08 09/11/22->8. 33% 09/24/22->7 .6% 11/11/22. Pt commended on outstandin g A1C downward trend. Of note, wt is going up and we discussed why. Encouraged 15 minutes of walking on work days; 1 hour non-work days. We discussed carrying a blood sugar source such as skittles or lifesavers in case he has low readings during physical activity. He verbalizse d understand ing. Cont metformin; doesn't tolerate higher dose Increase 70/30 to 27 in the morning; 20 in the evening. Will try a smaller bore needle (31G) Phone call after lab and x-ray results. [id number] MD [facility] [address] [place] [address] 01/20/2023 14:34:09 01/20/2023 17:34:02 [id number] LUCRETIA GALEAS, [facility] [address] [facility] [place] [address] 01/20/2023 15:36:09 01/20/2023 17:32:40 Uncontrolled type 2 diabetes mellitus 220287847 E11.65 A1C 11.4->11.2 08/14/22->9 .08 09/11/22->8. 33% 09/24/22->7 .6% 11/11/22->8 .4% 01/2023. Cont metformin; doesn't tolerate higher dose Increase 70/30 to 27 in the morning; 22 in the evening as he feels a higher dose in the rmoning might be problemati c as he had lower BGs for several days a couple weeks ago mid-day. Was provided FOBT kit today. 86804 Neyda Moore MD [facility] [address] [place] [address] 06/30/2023 10:26:11 06/30/2023 11:02:32 Type 2 diabetes mellitus 90755403 Z79.4 Hand cramps 563081903 R2 5.2 00093 MARCI BRANDON MD [facility] [address] [place] [address] 10/29/2023 11:33:31 10/29/2023 13:53:14 Uncontrolled type 2 diabetes mellitus 747065488 E11.65 increase metformin - likely will titrate to 1000 BID for better glucose controlcon tinue atorvastat inFollow up appt in 3 months with labs prior (advised patient he can see Dr Moore in [place] or come to [place]. ) Do labs prior to follow up appt . Steatosis of liver 1007 K76.0 reviewed results - mild LFT elevation, abnormal imaginglik jazmin add pioglitazo ne if DM remains uncontroll ed as this couldbenef it his liver Essential hypertension 35222448 I10 fairly well controlled with current regimen.Co ntinue Amlodipine and lisinopril Solitary n odule of lung 573666085 R91.1 [address] CTreviewed smoking hxconsider FU CT in 1 year Dyslipidemia 703787449 E 78.5 reviewed recent results - triglyceri gregory likely high jim to her Diabetes - discussed role of high triglyceri gregory in risk for pancreatit is and need for better DM control to help prevent future flares. Recurrent pancreatitis 934643030 K86.1 symptoms resolved - lipasecont inue to abstain from excessive alcohol use, explained that alcohol can aggrevate pancreas 59437 MD [facility] OFF[facility] [address] [place] [address] 01/18/2024 09:57:33 01/18/2024 10:40:34 Insulin treated type 2 diabetes mellitus 200003253 Z79.4 Uncontroll ed type 2 diabetes mellitus 936009120 E11.65 - increase metformin from 1000mg QD to 2000mg QD- labs Hyperlipidemia 09575999 E78.5 - atorvastat in was increased to 80mg early 2023, will continue Essential hypertension 27638385 I10 - good control on current regimen Hypertensive disorder 38 236793 I10 Gastroesop hageal reflux disease 452447034 K21.9 - Omeprazole , will also monitor symptoms after eating, biliary colic also possible source Lesion of penis 83157307 0 N48.9 - pinpiont lesions near glans, likely HPV- recommend have regular paps- consider Cryotherap y if symptomati c Nodule of lung 989841614 R91.1 - patient aware, asymptomat ic- repeat CT 09/2024 91679 MD MAUR[facility] OFFICE [address] [place] [address] 03/15/2024 10:06:39 03/15/2024 11:15:27 Steatosis of liver 525951341 K76.0 Insulin tr eated type 2 diabetes mellitus 067517389 Z79.4 - increase 70/30 to 33U am, 30U pm- work on diet- recheck A1C in 3 months with close monitoring - A1C Boot Camp 24543 MD [facility] OFFICE [address] [place] [address] 06/09/2024 10:21:48 06/09/2024 11:12:58 Otitis externa 5471451 H60.92 43078 MD [facility] OFFICE [address] [place] [address] 09/26/2024 10:10:16 09/26/2024 11:22:10 Hypertriglyceridemia 618860212 E78.1 - add Fenofibrat e 09/27- continue statin Insulin tr eated type 2 diabetes mellitus 384116748 Z79.4 - A1C 11.0 09/27: increasing 70/30 to 35U Qam, 32Qpm (was on )- continue working on diet, follow A1C- A1C Boot Camp Essential hypertension 00808536 I10 - good control on current regimen Health Concerns Section Related Observation LastModified by Organization Detai ls LastModified Time None Recorded Concern Status LastModified by Organization Details LastModified Time None Recorded Advance Directives Directive None Recorded Payers Encounter Date Sequence Insurance Name Policy Number Policy Palacios Covered Member ID Palacios Member ID Guarantor Name 10/29/2023 SLIDING FEE SCHEDULE - DISCOUNT Abhinav Chino 01/18/2024 SLIDING FEE SCHEDULE - DISCOUNT Abhinav Chino 03/15/2024 SLIDING FEE SCHEDULE - DISCOUNT Abhinav Chino 06/09/2024 SLIDING FEE SCHEDULE - DISCOUNT Abhinav Chino 09/26/2024 SLIDING FEE SCHEDULE - DISCOUNT Abhinav Chino Notes Date Note Type Note Provider Name and Address Organization Details Recorded Time 10/29/2023 text/html 48 yo with hx ty pe 2 DM poorly controlled. Seen in ER Sep 2023 with back pain - mild elevation of lipase felt to have pancreatitis. Patient reports that his pain has resolved. HAs had recurrent pancreatitis. CT noted multiple abnormalities - liver steatosis, pulmonary nodule.Here to go over CT findings and review recent labs. DM: Due for T2DM followup. Had recent A1c - poor conrol with A1c 11.4. Takes medication but not as currently listed in med list. - Insulin currently 30 in the morning and 20 in the PM. Metformin just one daily in the morning. Does not check BG regularly - checks every 3-4 days Lipids: Taking atorvastatin as directed Liver: Hepatitic steatosis noted on CT scan at hospital. CT in ER also noted small pulmonary nodule. Patient reports that he formerly smoked. Smoked cigarettes over 20 years 1 ppweek then quit MARCI BRANDON MD [facility] [place], [address], [facility] - [employer] 11/02/2023 17:44:07 01/18/2024 text/html Abhinav is in for followup of his DM2, hyperlipidemia, pancreatitis.No recent flares of abdominal pain, not drinking ETOH.Blood sugars okay, 140-150 in the morning, occasionally will see a BG >300 (often feels dizzy when he's this high).Taking medications as prescribed (recently had Atorvastatin increased from 40mg HS to 40mg BID, and Metformin increased from 500mg -->1000mg Q/day), no concerning side effects. He is due for A1C and lipids, didn't have this drawn prior to appt, Neyda Moore MD [address] [facility] [place], [address], [facility] [employer] 01/18/2024 11:44:56 03/15/2024 text/html Abhinav is in wit h his for DM2 followup.His last A1C was 10.1, currently on Metformin 1000mg BID and 70/30 insulin (30U am, 27U pm).Feels like diet is good.Rest of labs stable (elevated LFTs with known fatty liver disease, normal renal function). Neyda Moore MD [address] [facility] [place], [address], [facility] [employer] 03/15/2024 14:09:12 06/09/2024 text/html Taking 33U in the morning and 30U in the afternoon.Sugars have been typically <200Had an episode with dizziness and headache 3 weeks ago, sugar at that time was 390. Notes muscle cramps daily in bilateral LEs, worse at night.Drinking sufficient water, rare to no ETOH.For three days has had pain in L ear, no cough or fever. No chest pain, no difficulty breathing. No edema in extremities. Neyda Moore MD [address] [facility] [place], [address], [facility] [employer] 06/09/2024 12:28:58 09/26/2024 text/html Abhinav is in for DM2 f/u.Recently had labs done; A1C 11.0.Triglycerides 1415.Working on diet, taking medications as prescribed. Typically checking BGs once/day.Intermitte nt LBP, L sided. Occasionally radiates into L buttock. Uses Ibuprofen for this, unsure if it's helpful. Neyda Moore MD [address] [place], [address], [facility] - [employer] [facility] 09/26/2024 14:04:03
--- OUTSIDE RECORDS SUMMARY | 2024-10-05 12:06 | XMS_ITS | Continuity of Care Document ---
Author Organization [place] - [facility] OFF[facility] Address [address] [place] [address] Assessment Encounter Date Assessment Date Assessment LastModified by Organization Details LastModified Time 09/26/2024 09/26/2024 - poor control o f hypertriglyceridemia and DM2 - increase insulin, add Fibrate and continue high intensity statin [place] [id number] Not available 09/26/2024 14:02:35 Plan of Treatment Reminders Order Date Submit Date Provider Last Modified By Organization Details Last Modified Time Details Appointments None recorded. Lab lipid panel, serum [address]- Lab, [address] [place], [address], 14:03:58 HbA1c (hemoglobin A1c), blood [address]- Lab, [address] [place], [address], 14:03:58 CMP, serum or plasma [address] Lab, [address] [place], [address], 14:03:58 Referral None recorded. Procedures None recorded. Surgeries None recorded. Imaging None recorded. Medication Orders fenofibrate 160 mg tablet 2024 025 [facility], [address] [place], [address], 5 13:07:17 Patient TargetsNo targets recorded. Patient InstructionsNo instructions recorded. Reason for Referral None Reported. Problems Name Problem SNOMED Code Status Onset Date Resolution Date Notes Provider Name and Address Organization Details Recorded Time Insulin treated type 2 diabetes mellitus 394972968 Active 2022 Neyda Moore MD [address] [place] [address] [place], [address], [facility] [employer] 3 11:04:25 Pancreat itis 28795346 Completed 202208/03/2022 hx recurren t episodes Removal Reason: resolved - hospital ized August 2022 Mild 09/2023 - ER visit lipase mild elevatio n 317 MJ BRANDON MD [address] [place] [address] [place], [address], [facility] [employer] 5 21:39:59 Nodule of lung 798952257 Active 2023 R lower lobe [address] 09/2023 MJ BRANDON MD [address] [place] [address] [place], [address], [facility] [employer] 4 09:04:23 Steatosi s of liver 141549503 Active 2023 CT 09/2023 MJ BRANDON MD [address] [place] [address] [place], [address], [facility] [employer] 4 09:04:56 Gastroes ophageal reflux disease 595085038 Active 2023 vs biliary colic, PPI started 01/24 Neyda Moore MD [address] [place] [address] [place], [address], [facility] [employer] 4 11:42:57 Lesion of penis 890882364 Active 2023 asymptom atic Neyda Moore MD [address] [place] [address] [place], [address], [facility] [employer] 4 11:44:10 Hypertri glycerid emia 202479278 Active 2023 Neyda Moore MD [facility] [place], [address], [facility] [employer] 5 10:24:22 Pancreat itis 01619149 Active 2022 hx recurren t episodes MJ BRANDON MD [address] [place], [address], [facility] 5 21:39:59 Essentia l hyperten jake 84427999 Active 2020 Parminder Jang MD [address] [place], [address], [facility] 2 18:39:01 Type 2 diabetes mellitus 26269641 Active 2020 Parminder Jang MD [address] [place], [address], [facility] 2 18:39:15 Dyslipid emia 496769866 Active 2020 Parminder Jang MD [address] [place], [address], [facility] 2 18:38:47 History of divertic ulitis 60578512450 9100 Active 2011 Lucretia Wagner NP [address] [place], [address], [facility] 1 10:03:56 Problem Notes None recorded. Medical [...] 04/26/24 change to kwik pens. JONNATHAN 026 [id number] x2 vials 4 DVD 01/13/24 [id number] X 1 vial 4 AM: 5 [id number] x2 vials LRB: 11/30/24 [id number] x 2 vials 1 vial 5 [id number] 3 DO: [id number]!! exp: 5 1 vial05/04/23 LRB: 025 [id number] x1 vial12/03 LRB: 025, [id number] x 2 vials06/25 GT x2 vials [id number] S24 exp: lotNZF4 M11 EXP:08/25 LSM- Exp: 025 Lot: [id number] x2 vials ASM e0zqlgi : Lot: [id number] Exp: LRB: 4, [id number] 1 vial 12/01/19 25 [id number] 1 vial 12/01/19 25 [id number] 2 vials 12/01/19 25 [id number] 2vials [id number] EXP:;V O Not Available Not Available Not Available Humulin 70/30 U-100 Insulin KwikPen 100 unit/mL subcutaneo us Take 33 U SQ in morning and 30 U in the evening with meals 2023 active JONNATHAN 5: Lot: [id number] Exp: 5 x2LSM 07/04/24 : Lot: [id number] Exp: 05/04/25 x2LSM 06/09/24 [id number] Exp: 05/04/25 x1 boxLSM 04/26/24 [id number] Exp: 05/04/25 x1 box Not Available Not Available Not Available Vitals Date Recorded Body height Heart rate Oxygen saturation Oxygen saturation in Arterial blood by Pulse oximetry Systolic blood pressure Diastolic blood pressure Provider Name and Address Organization Details Last Updated DateTime 179.07 cm 95 /min 94 % 94 % 111 mm[Hg] 84 mm[Hg] Neyda Moore MD [address] [place], [address], [facility] [employer] 5 13:54:32 Social History Question Answer Notes LastModified by Organiz[employer] Details LastModified Time Tobacco Smoking Status Current Every Day Smoker 1-2 cigars at night Lucretia Wagner NP [address] [place], [address], [facility] [employer] 11/28/2020 10:31:49 What Is Your Level Of Alcohol Consumption? Occasional Information not available 11/28/2020 Sex: Unknown Functional Status Question Answer Note LastModified by Organ[employer] Details LastModified Time What is your exercise [...] able 11/28/2020 10:31:13 Medical History Condition Response Kidney Stones Y Diabetes Y Diverticulitis N Immunizations Vaccine Type Date Status Note Provider Nam e and Address Organization Details Recorded Time COVID-19, mRNA, LNP-S, PF, 30 mcg/0.3 mL dose 11/09/2020 completed MJ BRANDON MD [address] [place], [address], [facility] [employer] 11/02/2023 17:40:02 COVID-19, mRNA, LNP-S, PF, 30 mcg/0.3 mL dose 11/30/2020 completed MJ BRANDON MD [address] [facility] [place], [address], [facility] 11/02/2023 17:40:02 Past Encounters Encounter ID Performer Location Encounter Start Date Encounter Closed Date Diagnosis/Indication Diagnosis SNOMED-CT Code Diagnosis ICD10 Code Diagnosis Note [id number] Neyda Moore MD [facility] OFFICE [address] [place] [address] 09/26/2024 10:10:16 09/26/2024 11:22:10 Hypertriglyceridemia 161948568 E78.1 - add Fenofibrat e 09/27- continue statin Insulin tr eated type 2 diabetes mellitus 415841131 Z79.4 - A1C 11.0 09/27: increasing 70/30 to 35U Qam, 32Qpm (was on )- continue working on diet, follow A1C- A1C Boot Camp Essential hypertension 63537358 I10 - good control on current regimen Health Concerns Section Related Observation LastModified by Organization Detai ls LastModified Time None Recorded Concern Status LastModified by Organization Details LastModified Time None Recorded Payers Encounter Date Sequence Insurance Name Policy Number Policy Palacios Covered Member ID Palacios Member ID Guarantor Name 09/26/2024 SLIDING FEE SCHEDULE - DISCOUNT Abhinav Chino Notes Date Note Type Note Provider Name and Address Organization Details Recorded Time 09/26/2024 text/html Abhinav is in for DM2 f/u.Recently had labs done; A1C 11.0.Triglycerides 1415.Working on diet, taking medications as prescribed. Typically checking BGs once/day.Intermitt ent LBP, L sided. Occasionally radiates into L buttock. Uses Ibuprofen for this, unsure if it's helpful. Neyda Moore MD [address] [facility] [place], [address], [facility] 09/26/2024 14:04:03
[2024-10-05 12:59] LABS: Basophils Absolute Auto 0.03 K/uL (0.00-0.30); Basophils Percent Auto 0.3 % (0.0-3.0); Eosinophils Absolute Auto 0.33 K/uL (0.00-0.50); Eosinophils Percent Auto 3.3 % (0.0-7.0); Hematocrit 45.4 % (37.0-53.0); Immature Granulocytes Abs Auto 0.02 K/uL (0.00-0.30); Immature Granulocytes Pct Auto 0.2 %; Lymphocytes Percent Auto 28.1 % (20-44); Mean Corpuscular HGB Conc 35 gm/dL (32-36); Mean Corpuscular Hemoglobin 30 pg (26-34); Mean Corpuscular Volume 84 fL (80-100); Monocytes Percent Auto 6.7 % (0.0-11.0); Neutrophils Absolute Auto 6.11 K/uL (1.7-7.0); Neutrophils Percent Auto 61.4 % (42.0-72.0); Platelet Count* 202 K/uL (140-440); RDW Coefficient of Variation % 11.8 % (11.5-15.5); Red Blood Count 5.42 m/uL (4.30-5.90); White Blood Count* 9.96 K/uL (4.50-11.00)
[2024-10-05 13:01] LABS: Slide Review Reflex No
[2024-10-05 13:14] LABS: Albumin* 4.3 g/dL (3.3-5.0)
[2024-10-05 13:15] LABS: Chloride* 98 mmol/L (96-114); Potassium* 4.4 mmol/L (3.6-5.1); Sodium* 133 mmol/L (135-149)
[2024-10-05 13:17] LABS: Alkaline Phosphatase* 163 U/L (40-150); Aspartate Amino Transferase* 26 U/L (12-35); Bilirubin Direct* 0.4 mg/dL (0.0-0.5); Bilirubin Total* 0.7 mg/dL (0.1-1.5); Magnesium* 1.8 mg/dL (1.5-2.6); Total Protein* 8.1 g/dL (6.0-8.3)
[2024-10-05 13:18] LABS: Alanine Aminotransferase* 47 U/L (4-50); Blood Urea Nitrogen* 16 mg/dL (5-24); Creatinine* 0.7 mg/dL (0.5-1.5); Est. Creatinine Clearance* 138.95; Estimated Glomerular Filt Rate 114 ml/min; Lipase* 826 U/L (23-300)
[2024-10-05 13:19] LABS: Anion Gap 11 mEq/L (7-15); Calcium* 8.7 mg/dL (8.4-10.6); Carbon Dioxide* 24 mmol/L (20-32)
[2024-10-05 13:40] LABS: C Reactive Protein* < 0.5 mg/dL (0.5-1.0); Glucose* 407 mg/dL (60-115)
--- NOTE | 2024-10-05 13:48 | ED.GENADULT ---
HPI - General Adult General Date Seen: 10/05/24 Chief complaint: Chest Pain Stated complaint: Chest pain Time Seen by Provider: 10/05/24 12:20 History of Present Illness HPI narrative: Patient is a 49-year-old male who is primarily Bulgarian-speaking although he speaks fairly good Amharic. We did use an transactional paralegal for clarity. He is here with his for evaluation of epigastric and sternal chest pain which started shortly prior to arrival. He does have a history of pancreatitis and this feels similar although slightly worse than usual. He had 1 episode of vomiting. Pain radiates to the back. He has not had fevers or cough, not vomiting blood, no black or bloody stools. He does have pain with breathing but does not feel short of breath. He does not smoke, denies alcohol use. Related Data Home Medications ?Medication ?Instructions ?Recorded ?Confirmed amlodipine 5 mg tablet 5 mg PO DAILY 07/19/22 10/05/24 glimepiride 2 mg tablet 2 mg PO DAILY 07/19/22 10/05/24 hydrochlorothiazide 25 mg tablet 25 mg PO DAILY 07/19/22 10/05/24 lisinopril 10 mg tablet 10 mg PO DAILY 07/19/22 10/05/24 insulin NPH-regular 70-30 U-100 35 unit subcut BID 10/05/24 10/05/24 insulin 100 unit/mL subcutaneous pen (Novolin 70-30 FlexPen U-100 Insulin) Previous Rx's ?Medication ?Instructions ?Recorded atorvastatin 40 mg tablet 40 mg PO DAILY #30 tabs 07/21/22 metformin 500 mg tablet 1,000 mg (2 x 500 mg) PO BIDWM 30 07/21/22 days #60 tabs Allergies Allergy/AdvReac Type Severity Reaction Status Date / Time No Known Drug Allergies Allergy Verified 10/05/24 12:29 Review of Systems Status of ROS: Reports: 10 or more systems reviewed and unremarkable except as noted in History and below [facility] Medical History Pancreatitis ?K85.90 - Acute pancreatitis without necrosis or infection, unspecified (ICD-10) Sacroiliitis ?M46.1 - Sacroiliitis, not elsewhere classified (ICD-10) Diverticulosis ?K57.90 - Diverticulosis of intestine, part unspecified, without perforation or abscess without bleeding (ICD-10) History of diverticulitis ?Z87.19 - Personal history of other diseases of the digestive system (ICD-10) Right bundle branch block ?I45.10 - Unspecified right bundle-branch block (ICD-10) Renal cyst ?N28.1 - Cyst of kidney, acquired (ICD-10) Hypertriglyceridemia ?E78.1 - Pure hyperglyceridemia (ICD-10) Uncontrolled diabetes mellitus Social History Narrative: , 4 kids, works for a [employer] service. Amharic as 2nd language, Bulgarian speaking. Highest level of school completed/degree received: 2nd grade Smoking Status: Light tobacco smoker What tobacco products do you use: cigarettes Do you use any of these nicotine containing products: Vaping Products Second hand tobacco smoke exposure: No How often do you have a drink containing alcohol: monthly or less How many standard drinks containing alcohol do you have on a typical day: 1 or 2 How often do you have six or more drinks on one occasion: Never AUDIT-C Alcohol total score: 1 Non-prescribed substance use: denies use Caffeine: Yes service: No Exam Narrative: Exam Narrative: Vital signs reviewed In general, alert, nontoxic Head: Normocephalic, atraumatic. Eyes: Sclera clear. Pupils equal and reactive. ENT: Mucous membranes moist. Neck: Supple without adenopathy. Heart: Regular rate and rhythm without murmur. Lungs: Clear. No increased work of breathing, crackles or wheezes. Abdomen: He has upper abdominal tenderness diffusely with some voluntary guarding. He also has some tenderness across his chest. Extremities: Well perfused, pulses intact. No significant edema. Neurologic: Alert, conversant. Speech fluent, face symmetric. Moves all extremities equally. Skin: Warm, dry well perfused. Affect: Normal. Const: Vital Signs, click to edit/add: Vital Signs - 24 hr 10/05/24 12:20 10/05/24 12:41 10/05/24 12:43 Temperature 97.2 F L Pulse Rate 74 73 Pulse Rate [Pulse Oximeter] 79 Respiratory Rate 18 Blood Pressure 159/104 H Blood Pressure [Ri ght Upper Arm] 151/101 H Pulse Oximetry 99 93 96 Oxygen Delivery Me thod Room Air 10/05/24 12:45 10/05/24 13:00 10/05/24 13:02 Temperature Pulse Rate 73 75 77 Pulse Rate [Pulse Oximeter] Respiratory Rate 16 16 Blood Pressure 164/116 H Blood Pressure [Ri ght Upper Arm] Pulse Oximetry 96 94 94 Oxygen Delivery Me thod 10/05/24 13:03 10/05/24 13:15 10/05/24 13:30 Temperature Pulse Rate 84 82 82 Pulse Rate [Pulse Oximeter] Respiratory Rate 20 16 20 Blood Pressure Blood Pressure [Ri ght Upper Arm] Pulse Oximetry 94 96 97 Oxygen Delivery Me thod 10/05/24 13:32 10/05/24 13:45 10/05/24 14:00 Temperature Pulse Rate 78 84 87 Pulse Rate [Pulse Oximeter] Respiratory Rate Blood Pressure 146/99 H Blood Pressure [Ri ght Upper Arm] Pulse Oximetry 97 95 96 Oxygen Delivery Me thod 10/05/24 14:02 10/05/24 14:15 10/05/24 14:31 Temperature Pulse Rate 86 85 92 Pulse Rate [Pulse Oximeter] Respiratory Rate 18 14 Blood Pressure 146/103 H Blood Pressure [Ri ght Upper Arm] Pulse Oximetry 96 95 94 Oxygen Delivery Me thod 10/05/24 14:32 10/05/24 14:33 10/05/24 14:45 Temperature Pulse Rate 96 93 95 Pulse Rate [Pulse Oximeter] Respiratory Rate Blood Pressure 147/108 H Blood Pressure [Ri ght Upper Arm] Pulse Oximetry 96 95 96 Oxygen Delivery Me thod 10/05/24 15:00 10/05/24 15:01 10/05/24 15:15 Temperature Pulse Rate 91 88 96 Pulse Rate [Pulse Oximeter] Respiratory Rate 12 Blood Pressure 129/98 H Blood Pressure [Ri ght Upper Arm] Pulse Oximetry 96 94 97 Oxygen Delivery Me thod 10/05/24 15:30 10/05/24 15:32 Temperature Pulse Rate 89 87 Pulse Rate [Pulse Oximeter] Respiratory Rate Blood Pressure 126/96 H Blood Pressure [Ri ght Upper Arm] Pulse Oximetry 94 96 Oxygen Delivery Me thod Course Course ED Course: Following initial evaluation patient had an EKG which showed a sinus rhythm, ventricular rate of 83 and no acute ischemic changes. Unremarkable T-waves. Diagnostic considerations include acute coronary ischemia, he is PERC negative and I did not pursue evaluation for pulmonary embolism, aortic dissection, pancreatitis, gastritis, peptic ulcer disease, perforated viscus, biliary colic, cholecystitis among others. Initial troponin was 0. He has significant abdominal tenderness and with his history of pancreatitis I sense that this is probably going to be related to pancreatitis but will pursue imaging to look for other causes. I did speak with Dr. Moore, who sees him for primary care at [facility]. She notes that he has poorly controlled diabetes and high triglycerides as a probable cause for his repeated bouts of pancreatitis. Labs here are notable for a blood sugar of 407, he has a normal gap and normal CO2, doubt DKA. He does have an elevated lipase of 826. Point of care troponin 0. LFTs show a mildly elevated alk-phos of 163 but otherwise normal. He does have known elevated triglycerides, CT scan of the abdomen was read as showing mild stranding around the head of the pancreas possibly indicating mild pancreatitis. I think in association with abdominal tenderness, medical history and elevated lipase this likely represents pancreatitis. He had 2 doses of 4 mg of morphine here as well as Toradol and Zofran. He says his pain is still not well controlled and he does not think he will be able to manage at home this time. Recommended admission to the hospital for pain control and hydration. Second troponin pending. Second troponin is 0. Patient will be admitted to the hospitalist service as noted above. Vital Signs Vital signs: Initial Vital Signs Temperature 97.2 F L 10/05/24 12:20 Temperature Source Temporal Artery Scan 10/05/24 12:20 Pulse Rate 79 10/05/24 12:20 Respiratory Rate 18 10/05/24 12:20 Blood Pressure 151/101 H 10/05/24 12:20 Blood Pressure Mean 117 H 10/05/24 12:20 Blood Pressure Position Sitting 10/05/24 12:20 Pulse Oximetry 99 10/05/24 12:20 Oxygen Delivery Method Room Air 10/05/24 12:20 Vital Signs Temperature 97.2 F L 10/05/24 12:20 Pulse Rate 79 10/05/24 12:20 Respiratory Rate 18 10/05/24 12:20 Blood Pressure 151/101 H 10/05/24 12:20 Pulse Oximetry 99 10/05/24 12:20 Oxygen Delivery Method Room Air 10/05/24 12:20 Temperature 97.2 F L 10/05/24 12:20 Pulse Rate 87 10/05/24 15:32 Respiratory Rate 12 10/05/24 15:15 Blood Pressure 126/96 H 10/05/24 15:32 Pulse Oximetry 96 10/05/24 15:32 Oxygen Delivery Method Room Air 10/05/24 12:20 Medications Administered Medications: Discontinued Medications Generic Name Dose Route Start Last Admin Trade Name Sherrie PRN Reason Stop Dose Admin Ketorolac Tromethamine 15 mg 10/05/24 13:32 10/05/24 13:53 Ketorolac 15 Mg/Ml Inj IVP 10/05/24 13:33 15 mg ONCE ONE Administration Morphine Sulfate 4 mg 10/05/24 13:32 10/05/24 13:56 Morphine 4 Mg/Ml Inj IVP 10/05/24 13:33 4 mg ONCE ONE Administration Morphine Sulfate 4 mg 10/05/24 14:55 10/05/24 15:14 Morphine 4 Mg/Ml Inj IVP 10/05/24 14:56 4 mg ONCE ONE Administration Ondansetron HCl 4 mg 10/05/24 13:32 10/05/24 13:51 Ondansetron 2 Mg/Ml Inj IVP 10/05/24 13:33 4 mg ONCE ONE Administration Medical Decision Making Lab Data Lab results reviewed: Yes I reviewed the patient's lab results Labs: Lab Results 10/05/24 Range/Units 12:45 WBC 9.96 (4.50-11.00) K/uL RBC 5.42 (4.30-5.90) m/uL Hgb 16.0 (13.5-17.5) gm/dL Hct 45.4 (37.0-53.0) % MCV 84 (80-100) fL MCH 30 (26-34) pg MCHC 35 (32-36) gm/dL RDW Coeff of Ruben 11.8 (11.5-15.5) % Plt Count 202 (140-440) K/uL Neut % (Auto) 61.4 (42.0-72.0) % Lymph % (Auto) 28.1 (20-44) % Iroquois % (Auto) 6.7 (0.0-11.0) % Eos % (Auto) 3.3 (0.0-7.0) % Baso % (Auto) 0.3 (0.0-3.0) % Neut # (Auto) 6.11 (1.7-7.0) K/uL Lymph # (Auto) 2.80 (0.90-2.90) K/uL [place]quois # (Auto) 0.70 (0.00-0.90) K/UL Eos # (Auto) 0.33 (0.00-0.50) K/uL Baso # (Auto) 0.03 (0.00-0.30) K/uL Abs Immat Gran (auto) 0.02 (0.00-0.30) K/uL Imm/Tot Granulo (auto) 0.2 % Sodium 133 L (135-149) mmol/L Potassium 4.4 (3.6-5.1) mmol/L Chloride 98 (96-114) mmol/L Carbon Dioxide 24 (20-32) mmol/L Anion Gap 11 (7-15) mEq/L BUN 16 (5-24) mg/dL Creatinine 0.7 (0.5-1.5) mg/dL Estimated Creat Clear 138.95 Estimated GFR 114 ml/min Glucose 407 H* (60-115) mg/dL Calcium 8.7 (8.4-10.6) mg/dL Magnesium 1.8 (1.5-2.6) mg/dL Total Bilirubin 0.7 (0.1-1.5) mg/dL Direct Bilirubin 0.4 (0.0-0.5) mg/dL AST 26 (12-35) U/L ALT 47 (4-50) U/L Alkaline Phosphatase 163 H (40-150) U/L C-Reactive Protein < 0.5 L (0.5-1.0) mg/dL Total Protein 8.1 (6.0-8.3) g/dL Albumin 4.3 (3.3-5.0) g/dL Lipase 826 H (23-300) U/L POC Troponin I 0.00 L (0.01-0.04) ng/ml Imaging Data CT scan - abdomen: Attestation: I have reviewed the pertinent imaging results. Radiologist's impression: Patient: Abhinav Fink MR#: [id number] : 1975 Acct:[id number] Loc: ED Service Date: 10/05/[address]: Ordering Physician: Demetria Hyde M.D. Date of Service: 10/05/24 Procedure(s): CT abdomen pelvis w con Accession Number(s): [id number] cc: Demetria Hyde M.D.; Kelly Quezada NP~ For Patients: As a result of the Cures Act, medical imaging exams and procedure reports are released immediately into your electronic medical record. You may view this report before your referring provider. If you have questions, please contact your health care provider. INDICATION: Abdominal pain. History of pancreatitis. COMPARISON: 07/19/2022 CT of the abdomen and pelvis TECHNIQUE: CT of the abdomen and pelvis with intravenous contrast (106 milliliters Isovue 370). FINDINGS: Lung bases: No pleural effusion. Liver: Smooth hepatic contour. No suspicious hepatic lesions are identified. Gallbladder and biliary tree: Unremarkable CT appearance. Spleen: No splenomegaly. Pancreas: Minimal peripancreatic fat stranding adjacent to the pancreatic head and neck. Adrenal glands: Normal. Kidneys and ureters: No hydroureteronephrosis. Small cyst at the left upper polar kidney. Bladder: Unremarkable CT appearance. Visualized reproductive organs: Prostate size measures at the upper limits of normal. Gastrointestinal tract: Severe colonic diverticulosis. No focal abnormally dilated loops of bowel. Normal appendix. Peritoneal cavity: No free fluid or free air. Lymph nodes: No enlarged abdominal or pelvic lymph nodes by CT size criteria. Vessels: No abdominal aortic aneurysm. Abdominal and pelvic wall: Tiny fat containing umbilical hernia. Bones: There are osseous degenerative changes. 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 Similar slight anterior vertebral body wedging centered at the thoracolumbar junction. IMPRESSION: 1. Minimal peripancreatic fat stranding adjacent to the pancreatic head and neck, possibly a very subtle case of acute interstitial edematous pancreatitis versus an incidental finding. Correlate with lipase. 2. Severe colonic diverticulosis. 3. 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 4. Prostate size measures at the upper limits of normal. Please note that all CT scans at this facility use dose modulation, iterative reconstruction, and/or weight-based dosing when appropriate to reduce radiation dose to as low as reasonably achievable. Dictated by Rojas Field MD @ 10/05/2024 3:06:06 PM Discharge Plan Discharge Clinical Impression: Acute pancreatitis Qualifiers: Pancreatitis type: unspecified pancreatitis type Acute pancreatitis complication: no infection or necrosis Qualified Code(s): K85.90 - Acute pancreatitis without necrosis or infection, unspecified Patient Disposition: Admitted As Observation
[2024-10-05] MEDS: ONDANSETRON 2 MG/ML inj 4 MG IVP (13:51)
--- NOTE | 2024-10-05 13:52 | CRLHL7_ITS ---
For Patients: As a result of the Century Cures Act, medical imaging exams and procedure reports are released immediately into your electronic medical record. You may view this report before your referring provider. If you have questions, please contact your health care provider. INDICATION: Abdominal pain. History of pancreatitis. COMPARISON: 07/19/2022 CT of the abdomen and pelvis TECHNIQUE: CT of the abdomen and pelvis with intravenous contrast (106 milliliters Isovue 370). FINDINGS: Lung bases: No pleural effusion. Liver: Smooth hepatic contour. No suspicious hepatic lesions are identified. Gallbladder and biliary tree: Unremarkable CT appearance. Spleen: No splenomegaly. Pancreas: Minimal peripancreatic fat stranding adjacent to the pancreatic head and neck. Adrenal glands: Normal. Kidneys and ureters: No hydroureteronephrosis. Small cyst at the left upper polar kidney. Bladder: Unremarkable CT appearance. Visualized reproductive organs: Prostate size measures at the upper limits of normal. Gastrointestinal tract: Severe colonic diverticulosis. No focal abnormally dilated loops of bowel. Normal appendix. Peritoneal cavity: No free fluid or free air. Lymph nodes: No enlarged abdominal or pelvic lymph nodes by CT size criteria. Vessels: No abdominal aortic aneurysm. Abdominal and pelvic wall: Tiny fat containing umbilical hernia. Bones: There are osseous degenerative changes. 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 Similar slight anterior vertebral body wedging centered at the thoracolumbar junction. IMPRESSION: 1. Minimal peripancreatic fat stranding adjacent to the pancreatic head and neck, possibly a very subtle case of acute interstitial edematous pancreatitis versus an incidental finding. Correlate with lipase. 2. Severe colonic diverticulosis. 3. 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 4. Prostate size measures at the upper limits of normal. Please note that all CT scans at this facility use dose modulation, iterative reconstruction, and/or weight-based dosing when appropriate to reduce radiation dose to as low as reasonably achievable. Dictated by Rojas Field MD @ 10/05/2024 3:06:06 PM (Electronically Signed)
[2024-10-05] MEDS: KETOROLAC 15 MG/ML inj IVP (13:53)
[2024-10-05] MEDS: MORPHINE 4 MG/ML INJ IVP ×2 (13:56→15:14)
[2024-10-05] MEDS: HYDROmorphone 0.5 mg/0.5 ml inj IVP (18:55)
[2024-10-05 19:31] LABS: Triglycerides* 1769 mg/dL (40-149)
--- NOTE | 2024-10-05 19:41 | PC.NURSE ---
Pt speaks conversational Martiniquais, refused ipad beauty therapist, signed form but understand he has the right to ask for beauty therapist at any time. Up independently in room. Rates pain 5-6/10, see MAR. Dr. Pozo in/out of pt room and entering orders for POC.
[2024-10-05] MEDS: INSULIN REGULAR, HUMAN 100 UNIT/ML VIAL 7 UNIT IVP (20:02)
[2024-10-05] MEDS: 0.9 % SODIUM CHLORIDE 1000 ml 1,000 ML IV ×2 (20:03→21:37)
--- NOTE | 2024-10-05 20:30 | P.IMHP_ITS ---
Hospitalist- H&P: HPI History of Present Illness Date Seen: 10/05/24 Chief complaint: Chest pain Narrative: Abhinav Santiago is a 49 year old male with past medical history of diabetes, hypertriglyceridemia, hepatic steatosis, and history of acute pancreatitis who presents to the ED with both chest pain and abdominal pain with the pain radiating to his back. It all started in the morning when he took his insulin dose and started to have his breakfast but then he said it was like severe pain and he was nauseous and vomited about 7 times. Patient was admitted in 2021 for acute pancreatitis here at [facility] and his triglyceride level at that time was more than 2000. Patient states that he is compliant on his medications which include insulin 70-30 Novolin twice a day and atorvastatin, but still his last triglyceride reading about 3 weeks ago was about 1500. Patient's abdominal CT showing mild stranding around the area of the pancreas but no other issues with the pancreas. Lipase elevated at 825. Triglyceride severely elevated at about 1770. EKG was sinus rhythm with deep Q-wave only in aVR Lead. Two troponin levels checked and both came back negative. Review of Systems Status of ROS: Reports: 6 or more systems reviewed and unremarkable except as noted in History and below [facility] Medical History Pancreatitis ?K85.90 - Acute pancreatitis without necrosis or infection, unspecified (ICD- 10) Sacroiliitis ?M46.1 - Sacroiliitis, not elsewhere classified (ICD-10) Diverticulosis ?K57.90 - Diverticulosis of intestine, part unspecified, without perforation or abscess without bleeding (ICD-10) History of diverticulitis ?Z87.19 - Personal history of other diseases of the digestive system (ICD-10) Right bundle branch block ?I45.10 - Unspecified right bundle-branch block (ICD-10) Renal cyst ?N28.1 - Cyst of kidney, acquired (ICD-10) Hypertriglyceridemia ?E78.1 - Pure hyperglyceridemia (ICD-10) Uncontrolled diabetes mellitus Social History Narrative: , 4 kids, 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 Wolof as 2nd language, [place] speaking. What is your current living situation?: I presently have a place to live Problems where you live: no known problems Problems where you live details: na In the past 12 months, utilities in danger of being shut off: no In past 12 months, lack of transportation kept you from medical appts, meetings, work, or getting things needed for daily living: no In the past 12 mos, have been you worried that your food would run out before you had money to buy more?: never true In the past 12 mos, the food you bought just didn't last and you didn't have money to buy more?: never true Highest level of school completed/degree received: 2nd grade Smoking Status: Former smoker Second hand tobacco smoke exposure: No How often do you have a drink containing alcohol: monthly or less How many standard drinks containing alcohol do you have on a typical day: 1 or 2 How often do you have six or more drinks on one occasion: Never AUDIT-C Alcohol total score: 1 Non-prescribed substance use: denies use Caffeine: Yes (1 cup) How often does anyone, including family, friends and others, physically hurt you : never How often does anyone, including family, friends and others, insult or talk down to you: never How often does anyone, including family, friends and others, threaten you with harm: never How often does anyone, including family, friends and others, scream or curse at you: never service: No Meds Home Medications and Allergies Home Medications ?Medication ?Instructions ?Recorded ?Confirmed ?Type amlodipine 5 mg tablet 5 mg PO DAILY 07/19/22 10/05/24 History glimepiride 2 mg tablet 2 mg PO DAILY 07/19/22 10/05/24 History hydrochlorothiazide 25 mg tablet 25 mg PO DAILY 07/19/22 10/05/24 History lisinopril 10 mg tablet 10 mg PO DAILY 07/19/22 10/05/24 History insulin NPH-regular 70-30 U-100 32 - 35 unit subcut BID 10/05/24 10/05/24 History insulin 100 unit/mL subcutaneous pen (Novolin 70-30 FlexPen U-100 Insulin) Allergies Allergy/AdvReac Type Severity Reaction Status Date / Time No Known Drug Allergies Allergy Verified 10/05/24 12:29 Exam Narrative: Exam Narrative: Physical exam HEAD AND NECK: Atraumatic, normocephalic CARDIOVASCULAR: RRR. Normal S1, S2. No murmurs. RESPIRATORY: Clear to auscultation B/L. Good air entry B/L. No wheezes or rhonchi. GASTROINTESTINAL: Tender to palpation in the upper lt quadrant. No guarding or rigidity. NEUROLOGY: Alert, awake, oriented X 3. Normal speech. PSYCH: Normal mood, normal affect. Const: Vital Signs, click to edit/add: Vital Signs - 24 hr 10/05/24 12:20 10/05/24 12:41 10/05/24 12:43 Temperature 97.2 F L Pulse Rate 74 73 Pulse Rate [Pulse Oximeter] 79 Pulse Rate [Right Radial] Respiratory Rate 18 Blood Pressure 159/104 H Blood Pressure [Ri ght Arm] Blood Pressure [Ri ght Upper Arm] 151/101 H Pulse Oximetry 99 93 96 Oxygen Delivery Me thod Room Air 10/05/24 12:45 10/05/24 13:00 10/05/24 13:02 Temperature Pulse Rate 73 75 77 Pulse Rate [Pulse Oximeter] Pulse Rate [Right Radial] Respiratory Rate 16 16 Blood Pressure 164/116 H Blood Pressure [Ri ght Arm] Blood Pressure [Ri ght Upper Arm] Pulse Oximetry 96 94 94 Oxygen Delivery Me thod 10/05/24 13:03 10/05/24 13:15 10/05/24 13:30 Temperature Pulse Rate 84 82 82 Pulse Rate [Pulse Oximeter] Pulse Rate [Right Radial] Respiratory Rate 20 16 20 Blood Pressure Blood Pressure [Ri ght Arm] Blood Pressure [Ri ght Upper Arm] Pulse Oximetry 94 96 97 Oxygen Delivery Me thod 10/05/24 13:32 10/05/24 13:45 10/05/24 14:00 Temperature Pulse Rate 78 84 87 Pulse Rate [Pulse Oximeter] Pulse Rate [Right Radial] Respiratory Rate Blood Pressure 146/99 H Blood Pressure [Ri ght Arm] Blood Pressure [Ri ght Upper Arm] Pulse Oximetry 97 95 96 Oxygen Delivery Me thod 10/05/24 14:02 10/05/24 14:15 10/05/24 14:31 Temperature Pulse Rate 86 85 92 Pulse Rate [Pulse Oximeter] Pulse Rate [Right Radial] Respiratory Rate 18 14 Blood Pressure 146/103 H Blood Pressure [Ri ght Arm] Blood Pressure [Ri ght Upper Arm] Pulse Oximetry 96 95 94 Oxygen Delivery Ms thod 10/05/24 14:32 10/05/24 14:33 10/05/24 14:45 Temperature Pulse Rate 96 93 95 Pulse Rate [Pulse Oximeter] Pulse Rate [Right Radial] Respiratory Rate Blood Pressure 147/108 H Blood Pressure [Ri ght Arm] Blood Pressure [Ri ght Upper Arm] Pulse Oximetry 96 95 96 Oxygen Delivery Me thod 10/05/24 15:00 10/05/24 15:01 10/05/24 15:15 Temperature Pulse Rate 91 88 96 Pulse Rate [Pulse Oximeter] Pulse Rate [Right Radial] Respiratory Rate 12 Blood Pressure 129/98 H Blood Pressure [Ri ght Arm] Blood Pressure [Ri ght Upper Arm] Pulse Oximetry 96 94 97 Oxygen Delivery Me thod 10/05/24 15:30 10/05/24 15:32 10/05/24 15:33 Temperature Pulse Rate 89 87 86 Pulse Rate [Pulse Oximeter] Pulse Rate [Right Radial] Respiratory Rate Blood Pressure 126/96 H Blood Pressure [Ri ght Arm] Blood Pressure [Ri ght Upper Arm] Pulse Oximetry 94 96 95 Oxygen Delivery Me thod 10/05/24 15:45 10/05/24 16:00 10/05/24 16:02 Temperature Pulse Rate 92 83 80 Pulse Rate [Pulse Oximeter] Pulse Rate [Right Radial] Respiratory Rate Blood Pressure 133/100 H Blood Pressure [Ri ght Arm] Blood Pressure [Ri ght Upper Arm] Pulse Oximetry 96 96 95 Oxygen Delivery Me thod 10/05/24 16:15 10/05/24 16:30 10/05/24 16:32 Temperature Pulse Rate 80 82 90 Pulse Rate [Pulse Oximeter] Pulse Rate [Right Radial] Respiratory Rate Blood Pressure 126/99 H Blood Pressure [Ri ght Arm] Blood Pressure [Ri ght Upper Arm] Pulse Oximetry 95 94 97 Oxygen Delivery Me thod 10/05/24 16:45 10/05/24 17:00 10/05/24 17:02 Temperature Pulse Rate 76 73 94 Pulse Rate [Pulse Oximeter] Pulse Rate [Right Radial] Respiratory Rate 14 Blood Pressure 124/90 H Blood Pressure [Ri ght Arm] Blood Pressure [Ri ght Upper Arm] Pulse Oximetry 95 94 95 Oxygen Delivery Me thod 10/05/24 17:29 10/05/24 18:50 Temperature 98.6 F Pulse Rate Pulse Rate [Pulse Oximeter] Pulse Rate [Right Radial] 91 Respiratory Rate 16 16 Blood Pressure Blood Pressure [Ri ght Arm] 122/90 H Blood Pressure [Ri ght Upper Arm] Pulse Oximetry 96 Oxygen Delivery Me thod Room Air Room Air Hospitalist - H&P: Result Labs Labs: Short CBC 10/05/24 Range/Units 12:45 WBC 9.96 (4.50-11.00) K/uL Hgb 16.0 (13.5-17.5) gm/dL Hct 45.4 (37.0-53.0) % Plt Count 202 (140-440) K/uL BMP 10/05/24 12:45 Sodium 133 L Potassium 4.4 Chloride 98 Carbon Dioxide 24 BUN 16 Creatinine 0.7 Glucose 407 H* Calcium 8.7 Liver Function 10/05/24 Range/Units 12:45 Total Bilirubin 0.7 (0.1-1.5) mg/dL Direct Bilirubin 0.4 (0.0-0.5) mg/dL AST 26 (12-35) U/L ALT 47 (4-50) U/L Alkaline Phosphatase 163 H (40-150) U/L Albumin 4.3 (3.3-5.0) g/dL ECG Attestation: I personally reviewed and interpreted this ECG as follows: ECG interpretation date: 10/05/24 Interpretation: Sinus rhythm, deep Q-waves only noticed on aVR EKG lead. Normal QTC Imaging CT scan - abdomen: Radiologist's impression: INDICATION: Abdominal pain. History of pancreatitis. COMPARISON: 07/19/2022 CT of the abdomen and pelvis TECHNIQUE: CT of the abdomen and pelvis with intravenous contrast (106 milliliters Isovue 370). FINDINGS: Lung bases: No pleural effusion. Liver: Smooth hepatic contour. No suspicious hepatic lesions are identified. Gallbladder and biliary tree: Unremarkable CT appearance. Spleen: No splenomegaly. Pancreas: Minimal peripancreatic fat stranding adjacent to the pancreatic head and neck. Adrenal glands: Normal. Kidneys and ureters: No hydroureteronephrosis. Small cyst at the left upper polar kidney. Bladder: Unremarkable CT appearance. Visualized reproductive organs: Prostate size measures at the upper limits of normal. Gastrointestinal tract: Severe colonic diverticulosis. No focal abnormally dilated loops of bowel. Normal appendix. Peritoneal cavity: No free fluid or free air. Lymph nodes: No enlarged abdominal or pelvic lymph nodes by CT size criteria. Vessels: No abdominal aortic aneurysm. Abdominal and pelvic wall: Tiny fat containing umbilical hernia. Bones: There are osseous degenerative changes. 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 Similar slight anterior vertebral body wedging centered at the thoracolumbar junction. IMPRESSION: 1. Minimal peripancreatic fat stranding adjacent to the pancreatic head and neck, possibly a very subtle case of acute interstitial edematous pancreatitis versus an incidental finding. Correlate with lipase. 2. Severe colonic diverticulosis. 3. 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 4. Prostate size measures at the upper limits of normal. Please note that all CT scans at this facility use dose modulation, iterative reconstruction, and/or weight-based dosing when appropriate to reduce radiation dose to as low as reasonably achievable. Assessment and Plan Assessment and plan (1) Acute pancreatitis: Problem comment: -Patient's abdominal CT showing mild stranding around the area of the pancreas but no other issues with the pancreas. Lipase elevated at 825. -Triglyceride severely elevated at about 1770. -IV analgesics, antiemetics. -Ordered 2 L IVF bolus. -Ordered 7 U regular insulin push. - will start him on insulin drip to lower his triglyceride level to less than 500. -Insulin drip : The dosage is 0.1 to 0.3 U/kg/hour by continuous infusion, with glucose monitoring every 30 minutes to every hour. If glucose levels are below 200 mg/dL, will start 1/2 NS/D5W infusion to prevent hypoglycemia. -Monitor K+ Status: Acute (2) Chest pain: Problem comment: -EKG was sinus rhythm with deep Q-wave only in aVR Lead. -Two troponin levels checked and both came back negative. Status: Acute (3) Hypertriglyceridemia: Problem comment: -Triglyceride severely elevated at about 1770. -On atorvastatin at home Status: Acute (4) Uncontrolled diabetes mellitus: Problem comment: A1c 3 weeks ago was 11. States that he is compliant on his insulin and oral antidiabetic medications. Status: Acute (5) Hepatic steatosis: Status: Acute Total Time Spent Total Time Spent: Time spent: Today I spent 75 minutes seeing the patient, discussing the patient with ER staff, reviewing Expanse and EPIC notes/diagnostics, discussing the care plan with our care time that includes social work, PT/OT, pharmacy, RT, custodial and documenting my impressions and plan in the medical record.
[2024-10-05 21:18] LABS: Troponin I* < 0.01 ng/mL (0.01-0.04)
[2024-10-05] MEDS: ENOXAPARIN 40 MG/0.4 ML INJ SUBCUT (21:38)
[2024-10-05] MEDS: INSULIN INF 100 UNIT/100 ML 100 UNIT/100 ML BAG IVPB (22:55)
[2024-10-05] MEDS: POTASSIUM CHLORIDE 20 MEQ in 5 % DEXTROSE/0.45% SOD CHLOR 1,000 ML 250 MEQ IV (23:00)
[2024-10-06] VITALS (14 sets, daily range): BP systolic 113–132; BP diastolic 80–101; PULSE 66–81; RESP 16–18; TEMP 36.2–36.8; O2SAT 95–98
[2024-10-06 01:06] LABS: Potassium* 4.2 mmol/L (3.6-5.1)
[2024-10-06] MEDS: POTASSIUM CHLORIDE 20 MEQ in 5 % DEXTROSE/0.45% SOD CHLOR 1,000 ML 250 MEQ IV ×2 (03:11→07:25)
[2024-10-06 04:07] LABS: Potassium* 3.6 mmol/L (3.6-5.1)
--- NOTE | 2024-10-06 06:28 | PC.NURSE ---
Gato Downs d/t patient's blood sugar being [address] Pozo, we are to keep blood sugar > 200. Dr. Stearns gave orders to leave the insulin gtt @ 5 units/hr and the D5 @ 250 mL/hr for the time being. If his next blood sugar check is < 175 then we will have to make adjustments to the drips.
--- NOTE | 2024-10-06 06:34 | PC.NURSE ---
End of shift summary: Pt has been A&O, afebrile and VSS. He is SBA for transfers. Pt c/o mid abdominal pain rating it 3-4/10 overnight but declined PRN pain meds. Denied nausea or dizziness. He?s c/o being very hungry; NPO diet re-explained and pt verbalizes understanding. PIV in left AC infusing insulin gtt @ 5ml/hr and D5 ? NS with 20 mEq K+ @ 250 mL/hr. TELE showed NSR all night rate in the 60s-70s. Blood sugars q 1 hour, see flowsheet for levels. Pt?s primary language is [place] but waived using the transmission rebuilder services d/t being fluent in Citizen [place] as well. Porcelain Turner spoke with patient that if medical condition becomes unstable or more complex, we will need to use the transmission rebuilder and he verbalized understanding. Continent of urine overnight, x1 BM per patient report. Bowel sounds active. Potassium levels followed closely overnight with q3H draws, see diagnostics for trends.?
[2024-10-06 06:54] LABS: Hematocrit 40.3 % (37.0-53.0); Hemoglobin* 13.7 gm/dL (13.5-17.5); Mean Corpuscular HGB Conc 34 gm/dL (32-36); Mean Corpuscular Hemoglobin 29 pg (26-34); Mean Corpuscular Volume 84 fL (80-100); Platelet Count* 186 K/uL (140-440); Red Blood Count 4.78 m/uL (4.30-5.90); White Blood Count* 11.28 K/uL (4.50-11.00)
[2024-10-06 06:58] LABS: Slide Review Reflex No
[2024-10-06 07:11] LABS: Albumin* 3.6 g/dL (3.3-5.0); Chloride* 103 mmol/L (96-114)
[2024-10-06 07:12] LABS: Potassium* 3.9 mmol/L (3.6-5.1); Sodium* 137 mmol/L (135-149)
[2024-10-06 07:14] LABS: Anion Gap 7 mEq/L (7-15); Bilirubin Total* 0.5 mg/dL (0.1-1.5); Blood Urea Nitrogen* 10 mg/dL (5-24); Carbon Dioxide* 27 mmol/L (20-32); Cholesterol* 121 mg/dL (90-199); Creatinine* 0.6 mg/dL (0.5-1.5); Estimated Glomerular Filt Rate 120 ml/min; Total Protein* 6.7 g/dL (6.0-8.3)
[2024-10-06 07:15] LABS: Alanine Aminotransferase* 33 U/L (4-50); Alkaline Phosphatase* 110 U/L (40-150); Aspartate Amino Transferase* 17 U/L (12-35); Calcium* 8.3 mg/dL (8.4-10.6); Glucose* 208 mg/dL (60-115); HDL Cholesterol* 27 mg/dL (>=40); LDL Cholesterol Calculated 10 mg/dL (<100)
[2024-10-06 07:23] LABS: Triglycerides* 418 mg/dL (40-149)
[2024-10-06 07:24] LABS: Potassium* 3.9 mmol/L (3.6-5.1)
[2024-10-06] MEDS: lisinopriL 10 MG TABLET PO (08:36)
[2024-10-06] MEDS: ATORVASTATIN CALCIUM 40 MG TABLET PO ×2 (08:37→21:02)
[2024-10-06] MEDS: AMLODIPINE 5 MG TABLET PO (08:37)
[2024-10-06] MEDS: SODIUM CHLORIDE 0.9 % (FLUSH) 10 ML SYRINGE 5 ML IVF ×3 (08:40→21:02)
[2024-10-06] MEDS: INSULIN PROT/ASP (NOVOLOG 70/30) 100 UNIT/ML 35 UNIT SUBCUT (08:43)
[2024-10-06 10:00] LABS: Potassium* 3.5 mmol/L (3.6-5.1)
--- NOTE | 2024-10-06 11:37 | P.IMPN_ITS ---
Progress Note: A&P Assessment and plan (1) Acute pancreatitis: Problem details: -Patient's abdominal CT showing mild stranding around the area of the pancreas, lipase 825 -Triglyceride severely elevated at about 1770. -IV analgesics, antiemetics. -Ordered 2 L IVF bolus. -Ordered 7 U regular insulin push. -treated with insulin gtt, discontinued 10/06 given triglycerides 418 -resuming home high intensity statin and Tricor 10/06/24 Status: Acute (2) Chest pain: Problem details: -EKG was sinus rhythm with deep Q-wave only in aVR Lead -Two troponin levels checked and both came back negative, no CP Status: Acute (3) Hypertriglyceridemia: Problem details: -Triglyceride severely elevated at about 1770 -On atorvastatin at home, Tricor had been added recently but not picked up Status: Acute (4) Uncontrolled diabetes mellitus: Problem details: -A1c 3 weeks ago was 11 -States that he is compliant on his insulin and oral antidiabetic medications, 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 Primary risk factor is hypertriglyceridemia; in September his triglycerides were 1415. Tricor added to high intensity statin at that time, hadn't yet been picked up/initiated. Insulin gtt initiated for hypertriglyceridemia; triglycerides down from 1700 -> 418 today. Given improvement, gtt discontinued 10/06 and put back on home diabetic medications. This morning, wanted to attempt po intake as he was feeling better. Had a small amount of egg and became more nauseated/distended. Amenable to dialing back to full liquids again. No other concerns for hospitalist team. Exam Narrative: Exam Narrative: GEN: Alert and oriented, nontoxic HEENT: EOMIs bilaterally, no scleral icterus CV: RRR, No concerning murmurs R: LCTA bilaterally without concerning wheezing Ab: Mildly distended, hypoactive bowel sounds, + ttp Skin: No concerning skin lesions or rashes on exposed skin Neuro: Nonfocal Psych: Appropriate Const: Vital Signs, click to edit/add: Vital Signs - 24 hr 10/05/24 12:20 10/05/24 12:41 10/05/24 12:43 Temperature 97.2 F L Pulse Rate 74 73 Pulse Rate [Pulse Oximeter] 79 Pulse Rate [Right Radial] Respiratory Rate 18 Blood Pressure 159/104 H Blood Pressure [Ri ght Arm] Blood Pressure [Ri ght Upper Arm] 151/101 H Pulse Oximetry 99 93 96 Oxygen Delivery Me thod Room Air 10/05/24 12:45 10/05/24 13:00 10/05/24 13:02 Temperature Pulse Rate 73 75 77 Pulse Rate [Pulse Oximeter] Pulse Rate [Right Radial] Respiratory Rate 16 16 Blood Pressure 164/116 H Blood Pressure [Ri ght Arm] Blood Pressure [Ri ght Upper Arm] Pulse Oximetry 96 94 94 Oxygen Delivery Me thod 10/05/24 13:03 10/05/24 13:15 10/05/24 13:30 Temperature Pulse Rate 84 82 82 Pulse Rate [Pulse Oximeter] Pulse Rate [Right Radial] Respiratory Rate 20 16 20 Blood Pressure Blood Pressure [Ri ght Arm] Blood Pressure [Ri ght Upper Arm] Pulse Oximetry 94 96 97 Oxygen Delivery Me thod 10/05/24 13:32 10/05/24 13:45 10/05/24 14:00 Temperature Pulse Rate 78 84 87 Pulse Rate [Pulse Oximeter] Pulse Rate [Right Radial] Respiratory Rate Blood Pressure 146/99 H Blood Pressure [Ri ght Arm] Blood Pressure [Ri ght Upper Arm] Pulse Oximetry 97 95 96 Oxygen Delivery Me thod 10/05/24 14:02 10/05/24 14:15 10/05/24 14:31 Temperature Pulse Rate 86 85 92 Pulse Rate [Pulse Oximeter] Pulse Rate [Right Radial] Respiratory Rate 18 14 Blood Pressure 146/103 H Blood Pressure [Ri ght Arm] Blood Pressure [Ri ght Upper Arm] Pulse Oximetry 96 95 94 Oxygen Delivery Me thod 10/05/24 14:32 10/05/24 14:33 10/05/24 14:45 Temperature Pulse Rate 96 93 95 Pulse Rate [Pulse Oximeter] Pulse Rate [Right Radial] Respiratory Rate Blood Pressure 147/108 H Blood Pressure [Ri ght Arm] Blood Pressure [Ri ght Upper Arm] Pulse Oximetry 96 95 96 Oxygen Delivery Me thod 10/05/24 15:00 10/05/24 15:01 10/05/24 15:15 Temperature Pulse Rate 91 88 96 Pulse Rate [Pulse Oximeter] Pulse Rate [Right Radial] Respiratory Rate 12 Blood Pressure 129/98 H Blood Pressure [Ri ght Arm] Blood Pressure [Ri ght Upper Arm] Pulse Oximetry 96 94 97 Oxygen Delivery Me thod 10/05/24 15:30 10/05/24 15:32 10/05/24 15:33 Temperature Pulse Rate 89 87 86 Pulse Rate [Pulse Oximeter] Pulse Rate [Right Radial] Respiratory Rate Blood Pressure 126/96 H Blood Pressure [Ri ght Arm] Blood Pressure [Ri ght Upper Arm] Pulse Oximetry 94 96 95 Oxygen Delivery Me thod 10/05/24 15:45 10/05/24 16:00 10/05/24 16:02 Temperature Pulse Rate 92 83 80 Pulse Rate [Pulse Oximeter] Pulse Rate [Right Radial] Respiratory Rate Blood Pressure 133/100 H Blood Pressure [Ri ght Arm] Blood Pressure [Ri ght Upper Arm] Pulse Oximetry 96 96 95 Oxygen Delivery Me thod 10/05/24 16:15 10/05/24 16:30 10/05/24 16:32 Temperature Pulse Rate 80 82 90 Pulse Rate [Pulse Oximeter] Pulse Rate [Right Radial] Respiratory Rate Blood Pressure 126/99 H Blood Pressure [Ri ght Arm] Blood Pressure [Ri ght Upper Arm] Pulse Oximetry 95 94 97 Oxygen Delivery Me thod 10/05/24 16:45 10/05/24 17:00 10/05/24 17:02 Temperature Pulse Rate 76 73 94 Pulse Rate [Pulse Oximeter] Pulse Rate [Right Radial] Respiratory Rate 14 Blood Pressure 124/90 H Blood Pressure [Ri ght Arm] Blood Pressure [Ri ght Upper Arm] Pulse Oximetry 95 94 95 Oxygen Delivery Me thod 10/05/24 17:29 10/05/24 18:50 10/05/24 21:43 Temperature 98.6 F 98 F Pulse Rate Pulse Rate [Pulse Oximeter] Pulse Rate [Right Radial] 91 80 Respiratory Rate 16 16 18 Blood Pressure Blood Pressure [Ri ght Arm] 122/90 H 138/94 H Blood Pressure [Ri ght Upper Arm] Pulse Oximetry 96 Oxygen Delivery Me thod Room Air Room Air Room Air 10/05/24 22:01 10/05/24 23:20 10/05/24 23:20 Temperature Pulse Rate 83 73 Pulse Rate [Pulse Oximeter] 77 Pulse Rate [Right Radial] Respiratory Rate 18 Blood Pressure Blood Pressure [Ri ght Arm] Blood Pressure [Ri ght Upper Arm] Pulse Oximetry Oxygen Delivery Me thod 10/05/24 23:20 10/06/24 01:00 10/06/24 03:13 Temperature 97.9 F Pulse Rate 69 Pulse Rate [Pulse Oximeter] 75 Pulse Rate [Right Radial] 77 Respiratory Rate 18 18 Blood Pressure Blood Pressure [Ri ght Arm] 132/92 H 130/94 H Blood Pressure [Ri ght Upper Arm] Pulse Oximetry 97 95 Oxygen Delivery Me thod Room Air Room Air 10/06/24 03:13 10/06/24 03:13 10/06/24 05:00 Temperature 97.3 F L 97.8 F Pulse Rate Pulse Rate [Pulse Oximeter] 70 70 73 Pulse Rate [Right Radial] Respiratory Rate 18 18 16 Blood Pressure Blood Pressure [Ri ght Arm] 125/99 H 127/92 H Blood Pressure [Ri ght Upper Arm] Pulse Oximetry 96 97 Oxygen Delivery Or thod Room Air Room Air 10/06/24 06:00 10/06/24 06:57 10/06/24 07:29 Temperature 97.6 F Pulse Rate 66 Pulse Rate [Pulse Oximeter] 71 76 Pulse Rate [Right Radial] Respiratory Rate 16 16 Blood Pressure Blood Pressure [Ri ght Arm] 113/88 132/90 H Blood Pressure [Ri ght Upper Arm] Pulse Oximetry 97 97 Oxygen Delivery Or thod Room Air Room Air 10/06/24 07:30 10/06/24 11:31 Temperature 97.4 F L Pulse Rate Pulse Rate [Pulse Oximeter] 76 81 Pulse Rate [Right Radial] Respiratory Rate 16 16 Blood Pressure Blood Pressure [Ri ght Arm] 114/91 H Blood Pressure [Ri ght Upper Arm] Pulse Oximetry 97 Oxygen Delivery Or thod Room Air Labs Labs: Laboratory Results - last 24 hr 10/05/24 10/05/24 10/05/24 12:45 15:55 18:32 WBC 9.96 RBC 5.42 Hgb 16.0 Hct 45.4 MCV 84 MCH 30 MCHC 35 RDW Coeff of Ruben 11.8 Plt Count 202 Neut % (Auto) 61.4 Lymph % (Auto) 28.1 [place] % (Auto) 6.7 Eos % (Auto) 3.3 Baso % (Auto) 0.3 Neut # (Auto) 6.11 Lymph # (Auto) 2.80 [place] # (Auto) 0.70 Eos # (Auto) 0.33 Baso # (Auto) 0.03 Abs Immat Gran (auto) 0.02 Imm/Tot Granulo (auto) 0.2 Sodium 133 L Potassium 4.4 Chloride 98 Carbon Dioxide 24 Anion Gap 11 BUN 16 Creatinine 0.7 Estimated Creat Clear 138.95 Estimated GFR 114 Glucose 407 H* Calcium 8.7 Magnesium 1.8 Total Bilirubin 0.7 Direct Bilirubin 0.4 AST 26 ALT 47 Alkaline Phosphatase 163 H Troponin I < 0.01 L C-Reactive Protein < 0.5 L Total Protein 8.1 Albumin 4.3 Triglycerides 1769 H Cholesterol LDL Cholesterol, Calc HDL Cholesterol Lipase 826 H Lab Acknowledgement Test Added POC Troponin I 0.00 L 0.00 L 10/05/24 10/06/24 10/06/24 19:46 00:49 03:50 WBC RBC Hgb Hct MCV MCH MCHC RDW Coeff of Ruben Plt Count Neut % (Auto) Lymph % (Auto) [place] % (Auto) Eos % (Auto) Baso % (Auto) Neut # (Auto) Lymph # (Auto) [place] # (Auto) Eos # (Auto) Baso # (Auto) Abs Immat Gran (auto) Imm/Tot Granulo (auto) Sodium Potassium 4.2 3.6 Chloride Carbon Dioxide Anion Gap BUN Creatinine Estimated Creat Clear Estimated GFR Glucose Calcium Magnesium Total Bilirubin Direct Bilirubin AST ALT Alkaline Phosphatase Troponin I C-Reactive Protein Total Protein Albumin Triglycerides Cholesterol LDL Cholesterol, Calc HDL Cholesterol Lipase Lab Acknowledgement Test Added POC Troponin I 10/06/24 10/06/24 10/06/24 06:10 06:10 09:38 WBC 11.28 H RBC 4.78 Hgb 13.7 Hct 40.3 MCV 84 MCH 29 MCHC 34 RDW Coeff of Ruben Plt Count 186 Neut % (Auto) Lymph % (Auto) [place] % (Auto) Eos % (Auto) Baso % (Auto) Neut # (Auto) Lymph # (Auto) [place] # (Auto) Eos # (Auto) Baso # (Auto) Abs Immat Gran (auto) Imm/Tot Granulo (auto) Sodium 137 Potassium 3.9 3.9 3.5 L Chloride 103 Carbon Dioxide 27 Anion Gap 7 BUN 10 Creatinine 0.6 Estimated Creat Clear 162.10 Estimated GFR 120 Glucose 208 H Calcium 8.3 L Magnesium 2.0 Total Bilirubin 0.5 Direct Bilirubin AST 17 ALT 33 Alkaline Phosphatase 110 Troponin I C-Reactive Protein Total Protein 6.7 Albumin 3.6 Triglycerides 418 H Cholesterol 121 LDL Cholesterol, Calc 10 HDL Cholesterol 27 L Lipase Lab Acknowledgement POC Troponin I
[2024-10-06] MEDS: POTASSIUM BICARB 25 MEQ EFFERVESCENT TAB PO (12:48)
[2024-10-06 13:03] LABS: Potassium* 3.5 mmol/L (3.6-5.1)
[2024-10-06] MEDS: MORPHINE 4 MG/ML INJ IVP (15:37)
[2024-10-06 15:58] LABS: Potassium* 3.8 mmol/L (3.6-5.1)
[2024-10-06] MEDS: METFORMIN ER 500 MG 1000 MG PO (17:56)
[2024-10-06] MEDS: INSULIN PROT/ASP (NOVOLOG 70/30) 100 UNIT/ML 32 UNIT SUBCUT (17:57)
[2024-10-06] MEDS: ACETAMINOPHEN 325 MG TABLET 650 MG PO (17:57)
[2024-10-06] MEDS: INSULIN ASPART 100 UNIT/ML SUBCUT ×2 (18:02→21:00)
--- NOTE | 2024-10-06 18:52 | PC.NURSE ---
End of shift. pt has been very pleasant. DELAROSA later in the day 4-05/12. he got IV MS po tylenol and a coke. it is better. he is alert x4. he is up ab cameron. he is drinking and voiding with no problems. BS are before meals last 2 111 and 153. he is getting po and Insulin for meds. SL in the left a/c is patent. IV fluids where stopped. SL was flushed. TELE showed NSR. Pt is [place] and he also has very good pashto, he waived using the manager contract services . he can make his needs known. he is out of the unit.
[2024-10-06] MEDS: ENOXAPARIN 40 MG/0.4 ML INJ SUBCUT (21:01)
[2024-10-06 22:21] LABS: Potassium* 3.5 mmol/L (3.6-5.1)
[2024-10-07 03:17] VITALS: BP 112/81; PULSE 71; RESP 18; TEMP 36.1; O2SAT 98
--- NOTE | 2024-10-07 05:07 | PC.NURSE ---
Pt alert and oriented. Pt pleasant and cooperative had no complaints of pain. Pt up independently in room. Pt is on a clear liquid diet and tolerating well. Pt?s blood glucose at 2100 is 169; see EMAR for intervention. Pt slept most of shift. Pt?s? VS WNL.?
[2024-10-07 06:49] LABS: Basophils Absolute Auto 0.05 K/uL (0.00-0.30); Basophils Percent Auto 0.5 % (0.0-3.0); Eosinophils Absolute Auto 0.48 K/uL (0.00-0.50); Eosinophils Percent Auto 5.3 % (0.0-7.0); Hematocrit 42.3 % (37.0-53.0); Hemoglobin* 14.4 gm/dL (13.5-17.5); Immature Granulocytes Abs Auto 0.02 K/uL (0.00-0.30); Immature Granulocytes Pct Auto 0.2 %; Lymphocytes Absolute Auto 3.11 K/uL (0.90-2.90); Lymphocytes Percent Auto 34.2 % (20-44); Mean Corpuscular HGB Conc 34 gm/dL (32-36); Mean Corpuscular Hemoglobin 29 pg (26-34); Mean Corpuscular Volume 84 fL (80-100); Monocytes Percent Auto 7.7 % (0.0-11.0); Neutrophils Absolute Auto 4.74 K/uL (1.7-7.0); Neutrophils Percent Auto 52.1 % (42.0-72.0); Platelet Count* 198 K/uL (140-440); RDW Coefficient of Variation % 12.5 % (11.5-15.5); Red Blood Count 5.01 m/uL (4.30-5.90)
--- NOTE | 2024-10-07 06:56 | PC.NURSE ---
around 2300 Pt had a pudding, tomato soup and yogurt; tolerated well- no complaints of N/V.
[2024-10-07 07:00] VITALS: BP 124/95; PULSE 71; PULSE 75; PULSE 76; RESP 18; TEMP 36.6; O2SAT 98
[2024-10-07 07:10] LABS: Slide Review Reflex No
[2024-10-07 07:11] LABS: Chloride* 102 mmol/L (96-114); Potassium* 3.9 mmol/L (3.6-5.1); Sodium* 137 mmol/L (135-149)
[2024-10-07 07:14] LABS: Anion Gap 8 mEq/L (7-15); Blood Urea Nitrogen* 10 mg/dL (5-24); Carbon Dioxide* 27 mmol/L (20-32); Creatinine* 0.7 mg/dL (0.5-1.5); Est. Creatinine Clearance* 138.95; Estimated Glomerular Filt Rate 114 ml/min; Glucose* 143 mg/dL (60-115)
[2024-10-07] MEDS: FENOFIBRATE 145 MG TABLET PO (09:47)
[2024-10-07] MEDS: AMLODIPINE 5 MG TABLET PO (09:47)
[2024-10-07] MEDS: ATORVASTATIN CALCIUM 40 MG TABLET PO (09:48)
[2024-10-07] MEDS: lisinopriL 10 MG TABLET PO (09:48)
[2024-10-07] MEDS: OMEPRAZOLE 20 MG CAPSULE DR PO (09:48)
[2024-10-07] MEDS: INSULIN PROT/ASP (NOVOLOG 70/30) 100 UNIT/ML 35 UNIT SUBCUT (09:49)
[2024-10-07] MEDS: INSULIN ASPART 100 UNIT/ML SUBCUT (09:50)
[2024-10-07] MEDS: METFORMIN ER 500 MG 1000 MG PO (09:52)
--- NOTE | 2024-10-07 10:59 | PM.DS1 ---
DS: Providers Provider Date Seen: 10/07/24 Date of admission: 10/05/24 19:26 Primary care physician: Kelly Quezada NP Admitting Clinician: Jihan Pozo MD Attending Physician on discharge: Neyda Moore MD Date of Discharge: 10/07/24 DS: Diagnosis Discharge Diagnosis (1) Acute pancreatitis: Status: Acute Problem details: -CT on admission exhibited mild stranding around the area of the pancreas, lipase 825 -Triglyceride severely elevated at about 1770. -treated with insulin gtt to reduce triglycerides with improvement to <500 -resuming high intensity statin upon d/c, also starting Tricor (had been Rx as an outpatient, not yet initiated) (2) Chest pain: Status: Acute Problem details: -EKG was sinus rhythm with deep Q-wave only in aVR Lead -Two troponin levels checked and both came back negative, no recurrent CP during stay (3) Hypertriglyceridemia: Status: Acute Problem details: -Triglyceride severely elevated at about 1770 --> <500 after insulin gtt -On atorvastatin at home, Tricor had been added recently but not picked up (4) Uncontrolled diabetes mellitus: Status: Acute Problem details: -A1c 3 weeks ago was 11 -States that he is compliant on his insulin and oral antidiabetic medications, 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 History of this, known history of severe hypertriglyceridemia. Treated with insulin gtt and triglycerides improved from 1700 ->> 400s. Symptoms improved during stay, able to advance diet and appropriate for d/c home on 10/07/24. 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 Status at Discharge Functional status at discharge: independent ambulation Time Spent with Patient Time attestation: Total time spent providing and/or coordinating discharge services: Time spent: Greater than 30 minutes Exam Narrative: Exam Narrative: GEN: Alert and oriented, nontoxic HEENT: EOMIs bilaterally, no scleral icterus CV: RRR, No concerning murmurs R: LCTA bilaterally without concerning wheezing Ab: mild discomfort with palpation, no distention Ext: wwp, no concerning edema Skin: No concerning skin lesions or rashes on exposed skin Neuro: Nonfocal Psych: Appropriate Const: Vital Signs, click to edit/add: Vital Signs - 24 hr 10/06/24 11:31 10/06/24 15:33 10/06/24 15:34 Temperature 97.4 F L 97.6 F Pulse Rate Pulse Rate [Pulse Oximeter] 81 81 81 Respiratory Rate 16 16 16 Blood Pressure [Ri ght Arm] 114/91 H 132/101 H Pulse Oximetry 97 97 Oxygen Delivery Me thod Room Air Room Air 10/06/24 15:47 10/06/24 19:44 10/06/24 21:16 Temperature 97.2 F L Pulse Rate 77 71 Pulse Rate [Pulse Oximeter] 72 Respiratory Rate 16 Blood Pressure [Ri ght Arm] 120/90 H Pulse Oximetry 98 Oxygen Delivery Me thod Room Air 10/06/24 23:04 10/07/24 03:17 Temperature 98.2 F 97.0 F L Pulse Rate Pulse Rate [Pulse Oximeter] 81 71 Respiratory Rate 16 18 Blood Pressure [Ri ght Arm] 115/80 112/81 Pulse Oximetry 98 98 Oxygen Delivery Me thod Room Air Room Air DS: Data Data Completed and Pending Labs on day of discharge: Labs from last 24 hours 10/07/24 10/06/24 10/06/24 06:37 21:45 18:38 WBC 9.10 RBC 5.01 Hgb 14.4 Hct 42.3 MCV 84 MCH 29 MCHC 34 RDW Coeff of Ruben 12.5 Plt Count 198 Neut % (Auto) 52.1 Lymph % (Auto) 34.2 Wagoner % (Auto) 7.7 Eos % (Auto) 5.3 Baso % (Auto) 0.5 Neut # (Auto) 4.74 Lymph # (Auto) 3.11 H Wagoner # (Auto) 0.70 Eos # (Auto) 0.48 Baso # (Auto) 0.05 Abs Immat Gran (auto) 0.02 Imm/Tot Granulo (auto) 0.2 Sodium 137 Potassium 3.9 3.5 L 4.0 Chloride 102 Carbon Dioxide 27 Anion Gap 8 BUN 10 Creatinine 0.7 Estimated Creat Clear 138.95 Estimated GFR 114 Glucose 143 H Calcium 9.0 10/06/24 10/06/24 15:42 12:36 WBC RBC Hgb Hct MCV MCH MCHC RDW Coeff of Ruben Plt Count Neut % (Auto) Lymph % (Auto) Wagoner % (Auto) Eos % (Auto) Baso % (Auto) Neut # (Auto) Lymph # (Auto) Wagoner # (Auto) Eos # (Auto) Baso # (Auto) Abs Immat Gran (auto) Imm/Tot Granulo (auto) Sodium Potassium 3.8 3.5 L Chloride Carbon Dioxide Anion Gap BUN Creatinine Estimated Creat Clear Estimated GFR Glucose Calcium Discharge Plan Discharge Disposition: Home, Self-Care Date of Admission: 10/05/24 19:26 Attending Provider on Discharge: Neyda Moore Primary Care Provider: Kelly Quezada Condition: Improved Anticipated Discharge Date/Time: 10/07/24 10:42 Discharge Medications: Continued Novolin 70-30 FlexPen U-100 100 unit/mL (70-30) insulin pen 30 - 33 unit subcut BID Rx Instructions: 33U Q am, 30U before supper metformin 500 mg tablet extended release 24 hr 1,000 mg PO BID omeprazole 20 mg capsule,delayed release(DR/EC) 20 mg PO DAILY fenofibrate 160 mg tablet 160 mg PO DAILY atorvastatin 40 mg tablet 40 mg PO BID amlodipine 5 mg tablet 5 mg PO DAILY lisinopril 10 mg tablet 10 mg PO DAILY Discontinued ofloxacin 0.3 % drops 10 drp otic (ear) DAILY ondansetron 4 mg tablet,disintegrating 4 mg PO Q6H PRN Discharge Orders: Discharge Order (Routine); Ordered 10/07/24 Ordered By: Neyda Moore Additional Instructions: Continue your Insulin as previous (35U at night, 33U in the morning), stay on your Atorvastatin. We will change this to ROSUVASTATIN at your next clinic appointment. Stay on your Metformin. 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 BLAND DIET for the next few days: bananas, dry toast, potatoes, white rice, chicken, soup, jello. When you go to [place], stop by [facility] and make an appointment to see me in the next few weeks. Contin?e goins insulina emily antes (35U por la noche, 33U por la ma?clarissa), permanezca con goins Atorvastatina. Cambiaremos esto a ROSUVASTATINA en goins pr?xima ingrid en la cl?hoda. Siga tomando metformina. Hoy, vaya a [place] y recoja goins FENOFIBRATO, t?mosher lucretia vez al d?a para ayudar a reducir goins colesterol.? DIETA BLOSA para los pr?ximos d?as: pl?tanos, tostadas secas, patatas, arroz ang, max, sopa, gelatina. Cuando vaya a [place], pase por [facility] y kiana lucretia ingrid para verme en las pr?ximas semanas. Activity Level: Other Activity Detail: per above Follow Up Appointments: Neyda Moore MD [Staff Physician] - (Patient will f/u with me at [facility]) Forms: [facility] Info Instructions
--- NOTE | 2024-10-07 11:42 | NUTR.NU ---
RDN with verbal MD consult for pancreatitis. Patient admitted for pancreatitis. He was provided diet education for this and diabetes in July 2022. RDN visited with patient and significant other whom declined field placement director. Patient agreed to receive diet education related to pancreatitis. Patient was provided diet education on a low fat diet. Discussed foods to include and foods to avoid. Education also provided following a low fat diet (about 60 grams/day) long-term. Verbal and written information as well as a sample menu provided from [facility]. Handouts provided in German and Romanian. Patient verbalized understanding. RDN's contact information was provided and patient was encouraged to contact RDN with questions.
--- NOTE | 2024-10-07 11:57 | PC.NURSE ---
Patient tolerated a regular diet this morning for breakfast. Denies any nausea. Blood sugar 171 prior to eating. Insulin given per the MAR. Discharge instructions presented to the patient in dominican as well as divehi. Pt in agreement with discharge information and discharge plan. All questions answered and forms were signed. IV removed from pt's left AC. Tele removed.
== END 2024-10-07 12:16 | disposition home or self-care (01) | DRG 440 ==
LOC: ED 16:20 → MEDSURG 16:58
PROVIDERS: Family Medicine; Admitting Provider Student in an Organized Health Care Education/Training Program; Emergency Provider Emergency Medicine; PCP Nurse Practitioner Family; Visit Provider Student in an Organized Health Care Education/Training Program
DX: K85.90 Acute pancreatitis without necrosis or infection, unspecified (principal); E11.65 Type 2 diabetes mellitus with hyperglycemia; R07.9 Chest pain, unspecified; E78.1 Pure hyperglyceridemia; Z79.84 Long term (current) use of oral hypoglycemic drugs; Z79.4 Long term (current) use of insulin; K76.0 Fatty (change of) liver, not elsewhere classified; N28.1 Cyst of kidney, acquired; K57.30 Diverticulosis of large intestine without perforation or abscess without bleeding; I45.10 Unspecified right bundle-branch block
CPT/HCPCS: 36415; 74177; 80048; 80053; 80061; 80076; 82962; 83690; 83735; 84132; 84478; 84484; 85025; 85027; 86140; 93005; 94761; 99285; A9270; J1171; J1650; J1885; J2270; J2405; J3480; J3590; J7030; Q9967; S5010